=== PATIENT | female | born 1960 | race Caucasian/White ===

== ENCOUNTER 2020-09-24 15:47 | Emergency (ER) | payer OTHER, SELFPAY ==
--- NOTE | ~2020-09-24 | US_ITS ---
EXAMINATION: US VENOUS WITH DOPPLER LOWER EXTREMITY, LEFT CLINICAL INFORMATION: Left leg pain. Ankle sprain. Evaluate for a deep vein thrombosis. COMPARISON: None TECHNIQUE: Ultrasound of the deep veins is performed from the hip to the calf with compression sonography and color and pulse Doppler assessment. Spectral analysis with color-flow imaging is performed. FINDINGS: There is normal venous compression and respiratory variation and augmented flow. The visualized common femoral vein, superficial femoral vein, profunda femoral vein, popliteal vein, and the trifurcation region shows no evidence of deep venous thrombosis. There is no significant popliteal fossa cyst. If the patient's symptoms persist, followup ultrasound in 5 days 7 days might be of value to exclude proximal propagation from a non-visualized calf vein. US/US venous duplex LE IMPRESSION: No DVT demonstrated in the left lower extremity.
--- NOTE | ~2020-09-24 | XR_ITS ---
EXAMINATION: XR ANKLE, LEFT CLINICAL INFORMATION: Trauma with pain and swelling COMPARISON: None TECHNIQUE: AP, lateral, and mortise views of the left ankle. FINDINGS: Mild soft tissue swelling medially. Underlying bony structures however are unremarkable. No acute fracture or dislocation seen. Ankle mortise appears intact. No periosteal reaction. Incidental calcaneal heel spurs at the attachment point of the Achilles tendon and plantar aponeurosis. XR/XR ankle LT min 3V IMPRESSION: No acute fracture or dislocation. Incidental calcaneal heel spurs.
[2020-09-24 16:07] VITALS: BP 153/89; PULSE 83; RESP 16; TEMP 36.7; O2SAT 98; BMI 31.1
--- NOTE | 2020-09-24 16:55 | ED.LOWEXIN ---
HPI - Extremity Injury (Lower) General Chief Complaint: Extremity Injury, Lower Stated Complaint: fell 3 weeks AGO Time Seen by Provider: 09/24/20 16:54 Source: patient Mode of arrival: ambulatory Limitations: no limitations History of Present Illness HPI Narrative: 59-year-old female who walks into the emergency department with a complaint of left ankle swelling, symptoms started 2 weeks ago when she slipped on the snow, symptoms has been constant, able to bear weight but feeling tightness in the ankle while walking. Patient came in today for evaluation for persistence of the pain and swelling for 2 weeks. Related Data Allergies Allergy/AdvReac Type Severity Reaction Status Date / Time latex [LATEX] Allergy Unknown RASH Unverified 04/27/20 14:53 Review of Systems Review of Systems: All other systems are reviewed and are negative Constitutional: Reports as per HPI and Reports no additional constitutional complaints Eyes: Reports as per HPI and Reports no additional eye complaints Reports system reviewed and no additional complaints, except as documented Cardiovascular: Reports as per HPI and Reports no additional cardiovascular complaints Respiratory: Reports as per HPI and Reports no additional respiratory complaints Gastrointestinal: Reports as per HPI and Reports no additional gastrointestinal complaints Genitourinary: Reports no additional female genitourinary complaints Musculoskeletal: Reports no additional musculoskeletal complaints Skin/Breast: Reports system reviewed and no additional complaints, except as docu Psychiatric: Reports no additional psychiatric complaints Endocrine: Reports no additional endocrine complaints Hematologic/Lymphatic: Reports no additional hematologic/lymphatic complaints Allergic/Immunologic: Reports no additional allergic/immunologic complaints Reports system reviewed and no additional complaints, except as documented and Reports Abnormal speech present [facility] Past Medical History Medical History No known health problems Social History Social History Advance Directives: No Advance Directives Information Provided: Yes Physical Exam Vital Signs: Vital Signs: Last Vital Signs Temp 98.0 F 09/24/20 16:07 Pulse 83 09/24/20 16:07 Resp 16 09/24/20 16:07 BP 153/89 H 09/24/20 16:07 Pulse Ox 98 09/24/20 16:07 Body Mass Index 31.1 Vital signs have been reviewed as normal and appeared to be correct. Blood pressure in the high range. Heart rate normal. Respiration rate normal. Temperature normal. Oxygen saturation normal. Appearance: Alert. Oriented X3. No acute distress. Head: Normal external exam. Normocephalic. Atraumatic. No Hanson signs noted. No raccoon eyes noted Eyes: PERRLA. EOMI. Conjunctiva and sclera normal. Eyelids normal. ENT: EAC normal. TM's Normal. Pharynx normal. Uvula midline. Moist mucous membranes. No trismus noted. No drooling noted. No muffled voice noted. Neck: Normal inspection. Neck supple. FROM. No adenopathy. Thyroid Normal. No meningeal signs. No neck mass noted. CVS: Normal heart rate and rhythm. Heart sound normal. No murmurs noted. Pulses normal throughout. Respiratory: No respiratory distress. Painless inspiration. Breath sounds normal. No wheezes/rales/rhonchi noted. Chest nontender. No accessory muscle usage noted or decreased air movement noted. Abdomen: Soft and nontender. Bowel sounds normal in all 4 quadrants. No distention noted. No organomegaly noted. No visible injury noted. Back: No CVA tenderness. Full range of motion noted. Skin: Skin warm and dry. Normal skin color. Normal skin turgor. No rashes/lesions/lacerations noted. Extremities: Left ankle/left foot exam: Mild swelling on the medial malleolus, mild tenderness over the medial malleolus, full range of motion, no pain or swelling over the calf area, intact PT/DP pulsation with cap refill less than 2 seconds, sensation is intact in the left foot to right touch. Neuro: Oriented X 3. No motor deficit. No sensory deficit. Reflexes normal. Course Course Course Narrative: 59-year-old female who had left ankle injury 2 weeks ago came in with concern of persistence of swelling and tenderness in the left ankle. Unremarkable left ankle x-ray/negative ultrasound of left lower extremities for DVT. Recommended to the patient use Neo bandage at night, elevation, NSAIDs for discomfort and follow-up with PCP. MDM - Extremity Injury (Lower) Imaging Data Left ankle x-ray: Radiologist's impression: No acute fracture or dislocation. Incidental calcaneal heel spurs. Left lower extremities ultrasound: Radiologist's impression: No DVT. Discharge Plan Discharge Clinical Impression: Ankle sprain and strain Patient Disposition: Home, Self-Care Instructions: Ankle Sprain (ED) Referrals: Cassy Mtz MD [Primary Care Provider] - 2 days
== END 2020-09-24 18:51 | disposition home or self-care (01) ==
LOC: HO.ED 17:06
PROVIDERS: Emergency Provider Emergency Medicine; PCP Internal Medicine
DX: S93.402A Sprain of unspecified ligament of left ankle, initial encounter (principal); M25.572 Pain in left ankle and joints of left foot; X50.1XXA Overexertion from prolonged static or awkward postures, initial encounter; Y93.29 Activity, other involving ice and snow; Y92.9 Unspecified place or not applicable; Y99.9 Unspecified external cause status
CPT/HCPCS: 73610; 93971; 99284

== ENCOUNTER 2020-10-04 08:23 | Outpatient (REF) | payer OTHER, SELFPAY ==
--- NOTE | ~2020-10-04 | XR_ITS ---
EXAMINATION: XR hand wrist RT CLINICAL INFORMATION: History of fall COMPARISON: None. TECHNIQUE: PA, oblique, lateral, and navicular views of the right hand and wrist FINDINGS: No fracture. Normal alignment. Normal mineralization. No radiopaque foreign body. No soft tissue abnormality seen. XR/XR hand wrist RT IMPRESSION: No acute osseous abnormality.
[2020-10-04 09:45] LABS: Alanine Aminotransferase 64 U/L (0-31); Albumin Level 4.7 g/dL (3.5-5.0); Alkaline Phosphatase 125 U/L (39-117); Anion Gap 14 (12-20); Aspartate Amino Transferase 50 U/L (5-31); Bilirubin Total 0.5 mg/dL (0.0-1.0); Blood Urea Nitrogen 23 mg/dL (9-16); Carbon Dioxide 26 mmol/L (22-29); Chloride 108 mmol/L (96-108); Cholesterol 147 mg/dL; Estimated Glomerular Filt Rate > 60; Glucose Random 115 mg/dL (60-115); HDL Cholesterol 38 mg/dL; LDL Cholesterol Calculated 62 mg/dl; Potassium 4.1 mmol/L (3.3-5.1); Sodium 144 mmol/L (135-145); Total Protein 7.5 g/dL (6.5-8.0); Triglycerides 236 mg/dL
== END 2020-10-04 08:24 | disposition home or self-care (01) ==
LOC: HO.LAB 08:23
PROVIDERS: PCP Internal Medicine; Visit Provider Internal Medicine
DX: Z00.00 Encounter for general adult medical examination without abnormal findings (principal); E03.9 Hypothyroidism, unspecified; E78.2 Mixed hyperlipidemia; F33.42 Major depressive disorder, recurrent, in full remission; Z91.81 History of falling
CPT/HCPCS: 36415; 73110; 73130; 80053; 80061; 84443

== ENCOUNTER 2021-01-15 10:19 | Outpatient (REF) | payer OTHER, SELFPAY ==
--- NOTE | ~2021-01-15 | MM_ITS ---
EXAMINATION: MM SCREENING DIGITAL BREAST TOMOSYNTHESIS, BILATERAL CLINICAL INFORMATION: Screening. Asymptomatic. The lifetime risk of breast cancer based on the Tyrer-Cuzick Model is 11%. COMPARISON: Mammography: 10/06/2019, 03/30/2018 TECHNIQUE: Digital breast tomosynthesis is performed in both the craniocaudal and mediolateral oblique views along with computer-aided detection (CAD). Synthesized 2D images are generated from the tomosynthesis. Additional right MLO view is provided. FINDINGS: There are scattered areas of fibroglandular density (ACR BI-RADS breast composition Category b). There are no significant masses, abnormal calcifications, or other abnormalities. Parenchymal pattern is similar to prior studies. The axilla and skin contours are unremarkable. No significant changes. MM/MM tomosynthesis screening BI IMPRESSION: No mammographic evidence of malignancy. ASSESSMENT: BI-RADS 1: Negative RECOMMENDATION: Routine annual mammography screening. This patient's information was entered into a reminder system with a target due date for their next mammogram.
== END 2021-01-15 10:20 | disposition home or self-care (01) ==
LOC: HO.MAMMO 10:19
PROVIDERS: Visit Provider Internal Medicine
DX: Z12.31 Encounter for screening mammogram for malignant neoplasm of breast (principal)
CPT/HCPCS: 77063; 77067

== ENCOUNTER 2022-01-01 08:29 | Outpatient (REF) | payer OTHER, SELFPAY ==
[2022-01-01 09:04] LABS: MANUAL DIFF FLAG NO
[2022-01-01 09:47] LABS: Basophils Percent Auto 0.4 % (0-2); Eosinophils Absolute Auto 0.2 X10*3/uL (0.0-0.4); Eosinophils Percent Auto 1.9 % (0-4); Hematocrit 40.4 % (37.0-47.0); Hemoglobin 13.2 g/dl (12.0-16.0); Imm Gran Abs Auto 0.06 X10*3/uL (0.00-0.03); Imm Gran Pct Auto 0.7 % (0.0-0.4); Lymphocytes Percent Auto 24.5 % (20-40); Mean Corpuscular HGB Conc 32.7 g/dl (31.0-35.0); Mean Corpuscular Hemoglobin 29.9 pg (27.0-33.0); Mean Corpuscular Volume 91.6 fL (80.0-98.0); Monocytes Absolute Auto 0.6 X10*3/uL (0.1-1.2); Monocytes Percent Auto 6.6 % (2-11); Neutrophils Absolute Auto 5.5 x10*3/uL (2.0-8.3); Neutrophils Percent Auto 65.9 % (45-73); Platelet Count 226 X10*3/uL (160-400); Red Blood Count 4.41 X10*6/uL (4.20-5.50); Red Cell Distribution Width 14.4 % (11.0-16.0); White Blood Count 8.3 X10*3/uL (4.8-10.8)
[2022-01-01 10:37] LABS: Alanine Aminotransferase 88 U/L (0-31); Albumin Level 4.2 g/dL (3.5-5.0); Alkaline Phosphatase 127 U/L (39-117); Anion Gap 14 (12-20); Aspartate Amino Transferase 84 U/L (5-31); Bilirubin Total 0.4 mg/dL (0.0-1.0); Blood Urea Nitrogen 17 mg/dL (9-16); Calcium 8.7 mg/dL (8.4-10.2); Carbon Dioxide 21 mmol/L (22-29); Chloride 110 mmol/L (96-108); Cholesterol 129 mg/dL; Estimated Glomerular Filt Rate > 60; Glucose Random 112 mg/dL (60-115); HDL Cholesterol 36 mg/dL; LDL Cholesterol Calculated 66 mg/dl; Potassium 3.9 mmol/L (3.3-5.1); Sodium 141 mmol/L (135-145); Triglycerides 138 mg/dL
[2022-01-01 10:39] LABS: Thyroid Stimulating Hormone 0.99 uIU/mL (0.32-4.0)
== END 2022-01-01 08:30 | disposition home or self-care (01) ==
LOC: HO.LAB 08:29
PROVIDERS: PCP Internal Medicine; Visit Provider Internal Medicine
DX: Z00.00 Encounter for general adult medical examination without abnormal findings (principal); E03.8 Other specified hypothyroidism; E78.2 Mixed hyperlipidemia; F32.5 Major depressive disorder, single episode, in full remission
CPT/HCPCS: 36415; 80053; 80061; 84443; 85025

== ENCOUNTER 2022-07-17 09:29 | Outpatient (REF) | payer OTHER, SELFPAY ==
[2022-07-17 09:56] LABS: MANUAL DIFF FLAG NO
[2022-07-17 10:59] LABS: Basophils Absolute Auto 0.1 X10*3/uL (0.0-0.2); Basophils Percent Auto 0.6 % (0-2); Eosinophils Absolute Auto 0.2 X10*3/uL (0.0-0.4); Hematocrit 42.8 % (37.0-47.0); Hemoglobin 14.1 g/dl (12.0-16.0); Imm Gran Abs Auto 0.03 X10*3/uL (0.00-0.03); Imm Gran Pct Auto 0.4 % (0.0-0.4); Lymphocytes Absolute Auto 2.1 X10*3/uL (1.2-4.9); Lymphocytes Percent Auto 25.9 % (20-40); Mean Corpuscular HGB Conc 32.9 g/dl (31.0-35.0); Mean Corpuscular Hemoglobin 29.9 pg (27.0-33.0); Mean Corpuscular Volume 90.7 fL (80.0-98.0); Mean Platelet Volume 12.2 fL (9.4-12.3); Monocytes Absolute Auto 0.5 X10*3/uL (0.1-1.2); Monocytes Percent Auto 6.3 % (2-11); Neutrophils Absolute Auto 5.3 x10*3/uL (2.0-8.3); Neutrophils Percent Auto 64.8 % (45-73); Platelet Count 240 X10*3/uL (160-400); Red Blood Count 4.72 X10*6/uL (4.20-5.50); White Blood Count 8.1 X10*3/uL (4.8-10.8)
[2022-07-17 11:10] LABS: Estimated Average Glucose 117 mg/dL; Hemoglobin A1c % 5.7 %
[2022-07-17 11:36] LABS: Alanine Aminotransferase 74 U/L (0-31); Albumin Level 4.6 g/dL (3.5-5.0); Alkaline Phosphatase 128 U/L (39-117); Anion Gap 14 (12-20); Aspartate Amino Transferase 74 U/L (5-31); Bilirubin Total 0.5 mg/dL (0.0-1.0); Blood Urea Nitrogen 13 mg/dL (9-16); Calcium 9.1 mg/dL (8.4-10.2); Carbon Dioxide 23 mmol/L (22-29); Chloride 109 mmol/L (96-108); Cholesterol 143 mg/dL; Estimated Glomerular Filt Rate > 60; Glucose Random 109 mg/dL (60-115); HDL Cholesterol 37 mg/dL; LDL Cholesterol Calculated 72 mg/dl; Potassium 4.5 mmol/L (3.3-5.1); Sodium 141 mmol/L (135-145); Thyroid Stimulating Hormone 0.66 uIU/mL (0.32-4.0); Total Protein 7.2 g/dL (6.5-8.0); Triglycerides 173 mg/dL
== END 2022-07-17 09:30 | disposition home or self-care (01) ==
LOC: HO.LAB 09:29
PROVIDERS: PCP Internal Medicine; Visit Provider Internal Medicine
DX: E03.8 Other specified hypothyroidism (principal); E78.2 Mixed hyperlipidemia; F32.5 Major depressive disorder, single episode, in full remission; R74.01 Elevation of levels of liver transaminase levels
CPT/HCPCS: 36415; 80053; 80061; 83036; 84443; 85025

== ENCOUNTER 2022-10-30 10:17 | Outpatient (REF) | payer OTHER, SELFPAY ==
--- NOTE | ~2022-10-30 | MM_ITS ---
EXAMINATION: MM SCREENING DIGITAL BREAST TOMOSYNTHESIS, BILATERAL CLINICAL INFORMATION: Screening. Asymptomatic. The lifetime risk of breast cancer based on the Tyrer-Cuzick Model is 11%. COMPARISON: Mammography: 01/15/2021, 10/06/2019, 03/30/2018 TECHNIQUE: Digital breast tomosynthesis is performed in both the craniocaudal and mediolateral oblique views along with computer-aided detection (CAD). Synthesized 2D images are generated from the tomosynthesis. FINDINGS: There are scattered areas of fibroglandular density (ACR BI-RADS breast composition Category b). There are no significant masses, abnormal calcifications, or other abnormalities. No architectural abnormality or developing density or significant change from prior studies. There is a dermal lesion overlying the mid medial right breast. The axilla are unremarkable. MM/MM tomosynthesis screening BI IMPRESSION: No mammographic evidence of malignancy. ASSESSMENT: BI-RADS 2: Benign RECOMMENDATION: Routine annual mammography screening. This patient's information was entered into a reminder system with a target due date for their next mammogram.
== END 2022-10-30 10:18 | disposition home or self-care (01) ==
LOC: HO.MAMMO 10:17
PROVIDERS: PCP Internal Medicine; Visit Provider Internal Medicine
DX: Z12.31 Encounter for screening mammogram for malignant neoplasm of breast (principal)
CPT/HCPCS: 77063; 77067

== ENCOUNTER 2023-05-12 08:29 | Outpatient (REF) | payer OTHER, SELFPAY ==
[2023-05-12 10:19] LABS: Alanine Aminotransferase 67 U/L (0-31); Albumin Level 4.6 g/dL (3.5-5.0); Alkaline Phosphatase 140 U/L (39-117); Anion Gap 15 (12-20); Aspartate Amino Transferase 64 U/L (5-31); Bilirubin Total 0.6 mg/dL (0.0-1.0); Blood Urea Nitrogen 16 mg/dL (9-16); Calcium 9.2 mg/dL (8.4-10.2); Carbon Dioxide 23 mmol/L (22-29); Chloride 109 mmol/L (96-108); Estimated Glomerular Filt Rate > 60; Glucose Random 111 mg/dL (60-115); Potassium 3.7 mmol/L (3.3-5.1); Sodium 143 mmol/L (135-145); Total Protein 7.7 g/dL (6.5-8.0)
[2023-05-12 10:25] LABS: HBS Num1 0.12 mIU/mL (0-7.99); HBc Num1 0.14 S/CO (0.00-0.79); HBsAGNum1 0.29 S/CO (0.00-0.99); Hepatitis A Antibody IgM 0.15 Index (0-0.79); Hepatitis B Core Antibody Nonreactive (Nonreactive); Hepatitis B Surface Antigen Negative (Negative); ~HepC Num1 0.19 S/CO (0.00-0.79); ~Hepatitis A Antibody IgM Nonreactive (Nonreactive); ~Hepatitis B Surface Antibody NONREACTIVE (Nonreactive); ~Hepatitis C Antibody Nonreactive (Nonreactive)
[2023-05-12 10:28] LABS: Ferritin 205 ng/mL (10-250); Thyroid Stimulating Hormone 1.21 uIU/mL (0.32-4.0)
[2023-05-14 15:13] LABS: Anti Nuclear Antibody Screen NEGATIVE (NEGATIVE)
[2023-05-16 00:39] LABS: Smooth Muscle Antibody <20 U (<20)
== END 2023-05-12 08:30 | disposition home or self-care (01) ==
LOC: HO.LAB 08:29
PROVIDERS: PCP Internal Medicine; Visit Provider Internal Medicine
DX: E03.9 Hypothyroidism, unspecified (principal); E78.2 Mixed hyperlipidemia; I10 Essential (primary) hypertension; M54.50 Low back pain, unspecified; R74.01 Elevation of levels of liver transaminase levels
CPT/HCPCS: 36415; 80053; 82728; 84443; 86015; 86038; 86704; 86706; 86709; 86803; 87340

== ENCOUNTER 2023-09-10 08:01 | Outpatient (REF) | payer OTHER, SELFPAY ==
[2023-09-10 09:13] LABS: Alanine Aminotransferase 36 U/L (0-31); Albumin Level 4.3 g/dL (3.5-5.0); Alkaline Phosphatase 123 U/L (39-117); Anion Gap 12 (12-20); Aspartate Amino Transferase 34 U/L (5-31); Bilirubin Total 0.5 mg/dL (0.0-1.0); Blood Urea Nitrogen 17 mg/dL (9-16); Calcium 8.8 mg/dL (8.4-10.2); Carbon Dioxide 24 mmol/L (22-29); Chloride 108 mmol/L (96-108); Cholesterol 139 mg/dL (<200); Estimated Glomerular Filt Rate > 60; Glucose Random 102 mg/dL (60-115); HDL Cholesterol 33 mg/dL (>40); LDL Cholesterol Calculated 60 mg/dL (<100); Potassium 4.1 mmol/L (3.3-5.1); Sodium 140 mmol/L (135-145); Total Protein 7.7 g/dL (6.5-8.0); Triglycerides 234 mg/dL (<150)
[2023-09-10 09:28] LABS: Thyroid Stimulating Hormone 0.58 uIU/mL (0.32-4.0)
== END 2023-09-10 08:02 | disposition home or self-care (01) ==
LOC: HO.LAB 08:01
PROVIDERS: PCP Internal Medicine; Visit Provider Internal Medicine
DX: E03.9 Hypothyroidism, unspecified (principal); E78.2 Mixed hyperlipidemia; M67.813 Other specified disorders of tendon, right shoulder; I10 Essential (primary) hypertension; R74.01 Elevation of levels of liver transaminase levels
CPT/HCPCS: 36415; 80053; 80061; 84443

== ENCOUNTER 2023-10-01 14:27 | Emergency (ER) | payer OTHER, SELFPAY ==
--- NOTE | ~2023-10-01 | US_ITS ---
EXAMINATION: US VENOUS ULTRASOUND WITH DOPPLER LOWER EXTREMITY, BILATERAL CLINICAL INFORMATION: Bilateral lower extremity swelling COMPARISON: Ultrasound venous lower extremity left from 09/24/2020 TECHNIQUE: Ultrasound of the deep veins is performed from the hip to the calf with compression sonography and color and pulse Doppler assessment. Spectral analysis with color-flow imaging is performed. FINDINGS: RIGHT: There is normal venous compression and respiratory variation and augmented flow. The visualized common femoral vein, superficial femoral vein, profunda femoral vein, popliteal vein, and the trifurcation region shows no evidence of deep venous thrombosis. There is no significant popliteal fossa cyst. LEFT: There is normal venous compression and respiratory variation and augmented flow. The visualized common femoral vein, superficial femoral vein, profunda femoral vein, popliteal vein, and the trifurcation region shows no evidence of deep venous thrombosis. There is no significant popliteal fossa cyst. If the patient's symptoms persist, followup ultrasound in 5 days 7 days might be of value to exclude proximal propagation from a non-visualized calf vein. US/US venous duplex LE BI IMPRESSION: No DVT demonstrated in the bilateral lower extremity.
--- NOTE | 2023-10-01 14:36 | ED_ITS ---
HPI - Extremity Injury (Lower) General Chief Complaint: Extremity Problem Stated Complaint: r leg swelling Time Seen by Provider: 10/01/23 17:24 Source: patient Mode of arrival: ambulatory Limitations: no limitations History of Present Illness HPI Narrative: Patient is a 62-year-old female presenting to the emergency department with complaint of bilateral leg swelling which developed over the weekend. She denies any leg pain. She repeatedly states that ?someone told me it was fat. ? She denies any chest pain, palpitations, dyspnea. She denies history of heart failure, is not on a diuretic. She denies fevers. She denies any new weakness, numbness, tingling. complaint: other Onset (ago): day(s) Severity: mild Other symptoms: none Related Data Previous Rx's Medication Instructions Recorded cefuroxime axetil 500 mg tablet 500 mg PO BID #14 tabs 10/01/23 Allergies Allergy/AdvReac Type Severity Reaction Status Date / Time latex [LATEX] Allergy Unknown RASH Verified 10/01/23 14:37 Review of Systems 2 Review of Systems: As per HPI. Yes all other systems are reviewed and are negative Constitutional: Constitutional: Reports as per HPI COUNT INCLUDES THE [facility] Past Medical History Medical History No known health problems Social History Social History Alcohol intake: never Advance Directives: Yes Advance Directives Information Provided: No Advance Directives on File: No Physical Exam 2 Vital Signs: Vital Signs: Last Vital Signs Temp 98.4 F 10/01/23 17:34 Pulse 80 10/01/23 17:34 Resp 20 10/01/23 17:34 BP 173/86 H 10/01/23 17:34 Pulse Ox 94 10/01/23 17:34 O2 Del Method Room Air 10/01/23 17:34 BMI result Body Mass Index 31.0 Vital signs have been reviewed and appear to be correct. Blood pressure elevated. Heart rate normal. Respiratory rate normal. Temperature normal. Oxygen saturation normal. Const: General: cooperative, healthy appearing and no acute distress O rientation/consciousness: oriented to person, oriented to place, oriented to time and patient oriented x3 Limitations: no limitations HEENT: Head: Yes normocephalic and Yes atraumatic Ears: external ears normal General nose exam: Normal external nose present Face and sinus: Yes face symmetric Mouth: oropharynx normal and moist mucous membranes T hroat: Yes uvula midline Eyes: Pupils: Equal, round and reactive pupils present Neck: Neck: Yes normal visual inspection and Yes supple Resp: Effort & Inspection: normal respiratory effort and able to speak in complete sentences Auscultation: clear to auscultation bilaterally and no crackles Cardio: Rate: regular rate Rhythm: regular rhythm Heart sounds: S1 normal heart sound present and S2 normal heart sound present GI: Palpation (GI): Soft to palpation and nontender Auscultation: n ormoactive bowel sounds : General: Yes no CVA tenderness Back/Spine/Pelvis: Back: no CVA tenderness Skin: General skin exam: elasticity normal and turgor normal Neuro: General: oriented to person, oriented to place, oriented to time, patient oriented x3, moves all extremities, no focal motor deficits and CN's II- XI intact bilaterally Cranial nerves: Yes Equal, round and reactive pupils present Cognition (Neuro): normal cognition Extrem: Other: mild non-pitting bilateral lower extremity edema General: Yes full ROM, Yes no pedal edema and Yes no calf tenderness R ight lower extremity: foot Details: vascular exam Details: posterior tibial pulse present Left lower extremity: foot Details: vascular exam Details: dorsalis pedis pulse present and posterior tibial pulse present Psych: Mental Status: mental status grossly normal Affect: normal affect Thought process: Normal thought process present Course Course Course Narrative: RME: 62 year-old F w/no sig PMHx presenting to the ED c/o bilateral LE swelling, greater on the right > thigh/upper legs x5 days. denies taking diuretic, SOB, travel, hx clots Labs, US ordered Full HPI, ROS and PE to be performed by primary ED provider. Medical Decision Making Medical Decision Making MDM Narrative: Patient is a 62-year-old female presenting to the emergency department with complaint of bilateral leg swelling which developed over the weekend. On exam patient is awake, A+Ox3, VS WNL, afebrile, normal neurological exam without focal deficits, physical exam findings as above. Given reported symptoms and physical exam findings, initial differential includes dependent edema, DVT, acute heart failure, acute nephrotic syndrome. Labs notable for chronically elevated LFTs, no leukocytosis or anemia, no significant electrolyte abnormalities, normal BNP, normal albumin so unlikely nephrotic syndrome. No significant proteinuria noted on urinalysis, however 3+ leukocytes and nitrites noted, so will treat for UTI. Bilateral lower extremity ultrasounds notable for no evidence of DVTs. My interpretation is in agreement with the radiologist's interpretation. Discussed with patient that symptoms are unlikely due to fat, as this would not cause a sudden onset of swelling. Given that swelling is mild, feel patient is stable for discharge home to follow up with her PCP. Return precautions discussed at bedside. Instructed patient to follow-up with PCP regarding current symptoms as well as her elevated blood pressure in the emergency department today. Patient verbalized understanding of and agreement with plan. Differential Diagnosis Differential Diagnoses: The differential diagnosis associated with the presentation includes As per [facility]. Admission/Observation Consideration of admission/observation: Escalation of care including admission/observation considered Lab Data [facility] Lab Attestation statement: I reviewed the patient's lab results. As per MDM. 10/01/23 14:52 10/01/23 14:52 Labs: Lab Results 10/01/23 10/01/23 Range/Units 14:52 18:26 WBC 7.5 (4.8-10.8) X10*3/uL RBC 4.90 (4.20-5.50) X10*6/uL Hgb 14.5 (12.0-16.0) g/dl Hct 43.3 (37.0-47.0) % MCV 88.4 (80.0-98.0) fL MCH 29.6 (27.0-33.0) pg MCHC 33.5 (31.0-35.0) g/dl RDW 13.7 (11.0-16.0) % Plt Count 234 (160-400) X10*3/uL MPV 11.7 (9.4-12.3) fL Immature Gran % (Auto) 0.4 (0.0-0.4) % Neut % (Auto) 62.2 (45-73) % Lymph % (Auto) 28.4 (20-40) % Dewitt % (Auto) 6.8 (2-11) % Eos % (Auto) 1.7 (0-4) % Baso % (Auto) 0.5 (0-2) % Lymph # (Auto) 2.1 (1.2-4.9) X10*3/uL Dewitt # (Auto) 0.5 (0.1-1.2) X10*3/uL Eos # (Auto) 0.1 (0.0-0.4) X10*3/uL Baso # (Auto) 0.0 (0.0-0.2) X10*3/uL Abs Immat Gran (auto) 0.03 (0.00-0.03) X10*3/uL Absolute Neuts (auto) 4.7 (2.0-8.3) x10*3/uL Absolute Nucleated RBC 0.000 (0.0-0.012) X10*3/uL Nucleated RBC % (auto) 0.0 (0.0-0.2) /100WBC PT 12.1 (11.1-13.3) SEC INR 1.0 (0.9-1.1) Sodium 141 (135-145) mmol/L Potassium 3.7 (3.3-5.1) mmol/L Chloride 104 (96-108) mmol/L Carbon Dioxide 25 (22-29) mmol/L Anion Gap 16 (12-20) BUN 15 (9-16) mg/dL Creatinine 0.80 (0.5-1.4) mg/dL Estim Creat Clear Calc 70.0 Estimated GFR > 60 Random Glucose 105 (60-115) mg/dL Calcium 9.4 D (8.4-10.2) mg/dL Total Bilirubin 0.6 (0.0-1.0) mg/dL Direct Bilirubin 0.3 (0.0-0.5) mg/dL AST 46 H (5-31) U/L ALT 48 H (0-31) U/L Alkaline Phosphatase 124 H (39-117) U/L B-Natriuretic Peptide 25 (<100) pg/mL Total Protein 8.1 H (6.5-8.0) g/dL Albumin 4.7 (3.5-5.0) g/dL Urine Color Yellow Urine Appearance Cloudy Urine pH 5.5 (5.0-9.0) Ur Specific [place] 1.010 (1.005-1.025) Urine Protein Negative (Neg-Trace) mg/dL Urine Glucose (UA) Negative (Negative) mg/dL Urine Ketones Negative (Negative) mg/dL Urine Blood Trace H (Negative) Urine Nitrite Positive H (Negative) Ur Leukocyte Esterase Large (3+) H (Negative) Independent Interpretation I performed an independent interpretation of an: Ultrasound Interpretation: No evidence of DVT on bilateral lower extremity ultrasounds Radiology Impression Discussion of test interpretation with radiology: I have reviewed the radiologist's reading. Radiologist Impression: US/US venous duplex LE BI IMPRESSION: No DVT demonstrated in the bilateral lower extremity. External Record Review External record reviewed: Inpatient record, Office record and Outpatient record Prescription Management I considered prescription management with: Antibiotic Discharge Plan Discharge Clinical Impression: Dependent edema, Urinary tract infection Patient Disposition: Home, Self-Care Instructions: Urinary Tract Infection in Women (DC), Leg Edema (ED) Additional Instructions: You were evaluated in the emergency department today for bilateral lower leg swelling. Your evaluation including ultrasound and blood work did not reveal evidence of acute heart failure or blood clots in your legs. Your urine showed evidence of an infection, also known as a UTI. You are being prescribed a course of antibiotics to treat this infection, please complete the full course as prescribed. Please follow-up with your primary care provider for further evaluation of your symptoms. Your blood pressure was elevated in the emergency department today, please discuss this with your PCP. Return to the emergency department if you develop worsening swelling, chest pain, palpitations, shortness of breath or difficulty breathing, calf pain or swelling, or any other concerning symptoms. Prescriptions: New cefuroxime axetil 500 mg tablet 500 mg PO BID Qty: 14 0RF
[2023-10-01 14:37] VITALS: BP 146/88; PULSE 86; RESP 17; TEMP 36.6; O2SAT 96; BMI 31.0
[2023-10-01 14:56] LABS: MANUAL DIFF FLAG NO
[2023-10-01 14:58] LABS: Basophils Percent Auto 0.5 % (0-2); Eosinophils Absolute Auto 0.1 X10*3/uL (0.0-0.4); Eosinophils Percent Auto 1.7 % (0-4); Hematocrit 43.3 % (37.0-47.0); Hemoglobin 14.5 g/dl (12.0-16.0); Imm Gran Abs Auto 0.03 X10*3/uL (0.00-0.03); Imm Gran Pct Auto 0.4 % (0.0-0.4); Lymphocytes Absolute Auto 2.1 X10*3/uL (1.2-4.9); Lymphocytes Percent Auto 28.4 % (20-40); Mean Corpuscular HGB Conc 33.5 g/dl (31.0-35.0); Mean Corpuscular Hemoglobin 29.6 pg (27.0-33.0); Mean Corpuscular Volume 88.4 fL (80.0-98.0); Mean Platelet Volume 11.7 fL (9.4-12.3); Monocytes Absolute Auto 0.5 X10*3/uL (0.1-1.2); Monocytes Percent Auto 6.8 % (2-11); Neutrophils Absolute Auto 4.7 x10*3/uL (2.0-8.3); Neutrophils Percent Auto 62.2 % (45-73); Platelet Count 234 X10*3/uL (160-400); Red Cell Distribution Width 13.7 % (11.0-16.0); White Blood Count 7.5 X10*3/uL (4.8-10.8)
[2023-10-01 15:03] LABS: Prothrombin Time 12.1 SEC (11.1-13.3)
[2023-10-01 15:16] LABS: Alanine Aminotransferase 48 U/L (0-31); Albumin Level 4.7 g/dL (3.5-5.0); Alkaline Phosphatase 124 U/L (39-117); Anion Gap 16 (12-20); Aspartate Amino Transferase 46 U/L (5-31); Bilirubin Direct 0.3 mg/dL (0.0-0.5); Bilirubin Total 0.6 mg/dL (0.0-1.0); Blood Urea Nitrogen 15 mg/dL (9-16); Calcium 9.4 mg/dL (8.4-10.2); Carbon Dioxide 25 mmol/L (22-29); Chloride 104 mmol/L (96-108); Estimated Glomerular Filt Rate > 60; Glucose Random 105 mg/dL (60-115); Potassium 3.7 mmol/L (3.3-5.1); Sodium 141 mmol/L (135-145); Total Protein 8.1 g/dL (6.5-8.0)
[2023-10-01 15:30] LABS: B Type Natriuretic Peptide 25 pg/mL (<100)
[2023-10-01 17:34] VITALS: BP 173/86; PULSE 80; RESP 20; TEMP 36.9; O2SAT 94
[2023-10-01 18:42] LABS: Appearance Urine Cloudy; Color Urine Yellow; Glucose Urine UA Negative (Negative); Leukocyte Esterase Urine Large (3+) (Negative); Nitrite Urine Positive (Negative); PH 5.5 (5.0-9.0); UMIC TRIGGER UACC YES; Urine Blood Trace (Negative); Urine Ketones Negative (Negative); Urine Protein Negative (Neg-Trace)
[2023-10-01 18:44] LABS: Bacteria Urine 4+ (None Seen); Hyaline Casts Urine 0-2 /LPF (0-2); RBC Urine 0-2 /HPF (0-2); Squamous Epithelial Cell Urine 0-2 /HPF (0-2); UACC Culture Trigger YES; WBC Urine >50 /HPF (0-5)
== END 2023-10-01 18:59 | disposition home or self-care (01) ==
PROVIDERS: Physician Assistant; Registered Nurse Emergency; Emergency Provider Emergency Medicine Emergency Medical Services; PCP Internal Medicine
DX: R60.0 Localized edema (principal); N39.0 Urinary tract infection, site not specified
CPT/HCPCS: 36415; 80048; 80076; 81001; 83880; 85025; 85610; 87086; 87088; 87186; 93970; 99283; 99284

== ENCOUNTER 2023-11-27 09:58 | Outpatient (REF) | payer OTHER, SELFPAY | END 2023-11-27 09:59 | disposition home or self-care (01) | LOC: HO.MAMMO 09:58 | PROVIDERS: PCP Internal Medicine; Visit Provider Internal Medicine | DX: Z12.31 Encounter for screening mammogram for malignant neoplasm of breast (principal) | CPT/HCPCS: 77063; 77067 ==

== ENCOUNTER → 2023-11-27 10:45 | Outpatient (BNV) | payer OTHER, SELFPAY | PROVIDERS: PCP Internal Medicine; Visit Provider Radiology Diagnostic Radiology | DX: Z12.31 Encounter for screening mammogram for malignant neoplasm of breast (principal) | CPT/HCPCS: 77063; 77067 ==

== ENCOUNTER 2023-12-06 12:22 | Emergency (ER) | payer OTHER, SELFPAY ==
--- NOTE | ~2023-12-06 | XR_ITS ---
EXAMINATION: XR CHEST CLINICAL INFORMATION: Cough. Shortness of breath. COMPARISON: Most recent chest radiograph dated 01/11/2017. TECHNIQUE: 2 views of the chest were obtained. FINDINGS: The lungs are clear. The cardiomediastinal silhouette is normal in size. There is no pleural effusion or pneumothorax. No acute osseous abnormality. XR/XR chest 2V IMPRESSION: No acute cardiopulmonary findings.
[2023-12-06 12:23] VITALS: BP 138/86; PULSE 97; RESP 18; TEMP 36.6; O2SAT 99; BMI 32.1
--- NOTE | 2023-12-06 12:24 | ED.GENADULT ---
HPI - General Adult General Chief complaint: Upper Respiratory Symptoms Stated complaint: Congestion, cough Time Seen by Provider: 12/06/23 12:33 Source: patient Mode of arrival: ambulatory Limitations: no limitations History of Present Illness HPI narrative: patient is a 62-year-old female who presents to the emergency department for evaluation of 6 days of URI symptoms. Reports that she initially started with a cough, on the 1st day it was mildly productive with a small amount of yellow phlegm which has since subsided, intermittent nasal congestion and intermittent sore throat. She tried OTC cold medication without any improvement. Denies fevers, chills, headache, dizziness, neck pain, neck stiffness, chest pain, shortness of breath, difficulty breathing, nausea, vomiting, abdominal pain, numbness or tingling of the extremities, genitourinary symptoms. Related Data Previous Rx's ?Medication ?Instructions ?Recorded cefuroxime axetil 500 mg tablet 500 mg PO BID #14 tabs 10/01/23 amoxicillin 875 mg-potassium 1 tab PO BID #14 tabs 12/06/23 clavulanate 125 mg tablet Allergies Allergy/AdvReac Type Severity Reaction Status Date / Time latex [LATEX] Allergy Unknown RASH Verified 12/06/23 12:26 Review of Systems Review of Systems: Yes all other systems are reviewed and are negative PMFSH Past Medical History Attestation statement: The following information was validated with the patient. Source: old records reviewed Medical History No known health problems Social History Social History Alcohol intake: never Advance Directives: Yes Advance Directives Information Provided: No Advance Directives on File: No Do you have a plan to hurt others: No Plan Physical Exam ED Vital Signs: Vital Signs - 24 hr 12/06/23 12:23 Temperature 97.8 F Pulse Rate 97 Respiratory Rate 18 Blood Pressure 138/86 Pulse Oximetry 99 Oxygen Delivery Method Room Air BMI result Body Mass Index 32.1 Appearance: Alert.?Oriented to person, place and time. No acute distress.?Normal affect. Eyes: Pupils equal, round and reactive to light.? ENT: TM normal bilaterally. Pharynx normal.?? Neck: Normal inspection.? Neck supple.??No cervical adenopathy CVS: Heart sounds normal. Normal heart rate and rhythm.? Pulses normal.?? Respiratory: No respiratory distress.? Lung sounds clear to auscultation bilaterally?? Abdomen: Soft and non-tender. Normoactive bowel sounds. Skin: Skin warm and dry.? Normal skin color.? ? Extremities: No lower extremity edema.? Neuro: Moves all extremities spontaneously. Sensation intact bilaterally. No motor deficits. Ambulates with normal steady gait. Course Course Course Narrative: RME performed by Katharine Goodman PA-C. Patient is a 62 year old assigned female at presenting to the emergency department with a sore throat, cough, and congestion over the last 5 days. Detailed physical exam and review of systems are deferred to the supervisor adult education. Imaging and swabs ordered. Patient placed back in the waiting room pending room availability and results. Medical Decision Making Medical Decision Making [facility] Narrative: Patient is a 62-year-old female with past medical history of allergic rhinitis presenting for evaluation of upper respiratory symptoms. COVID-19 /influenza/RSV testing negative. strep a testing Negative. chest x-ray is without acute cardiopulmonary abnormality At this time history and physical exam not consistent with ACS/PE/pneumonia/ TRANSMISSION ASSEMBLER/RPA. Well-appearing, nontoxic, afebrile, no tachycardia or tachypnea/hypoxia. Speaking clear full sentences, ambulatory with steady gait. will treat with course of antibiotics for rhino sinusitis and Discussed conservative treatment including rest, hydration, Tylenol/ibuprofen as needed for fever and body aches, saline nasal spray, humidifier, kcyn-xws-rdwaifv cold medication. Advised to follow-up with primary care provider as needed, discussed reasons to return back to the emergency department. All questions were answered. Patient discharged home in stable condition. Differential Diagnosis Differential Diagnoses: The differential diagnosis associated with the presentation includes ( See narrative above) Admission/Observation Consideration of admission/observation: Escalation of care including admission/observation considered ( see narrative above) Lab Data [facility] Lab Attestation statement: I reviewed the patient's lab results. ( see narrative above) Labs: Lab Results 12/06/23 Range/Units 12:47 Influenza Type A (PCR) NEGATIVE (Negative) Influenza Type B (PCR) NEGATIVE (Negative) RSV RNA Qual (PCR) NEGATIVE (Negative) SARS-CoV-2 RNA (RT-PCR) NEGATIVE (Negative) S. pyogenes GrpA MICHELLE Negative (Negative) Independent Interpretation I performed an independent interpretation of an: Plain X-Ray ( no consolidation or infiltrates) Radiology Impression Discussion of test interpretation with radiology: I have reviewed the radiologist's reading. Radiologist Impression: XR/XR chest 2V IMPRESSION: No acute cardiopulmonary findings. Prescription Management I considered prescription management with: Antibiotic Discharge Plan Discharge Clinical Impression: Sinusitis Patient Disposition: Home, Self-Care Instructions: Rhinosinusitis (ED) Additional Instructions: Complete the entire course of antibiotics as prescribed. Be sure to rest, stay well hydrated drinking plenty of fluids, eat small frequent meals. Tylenol/ibuprofen can be used as needed for fever/pain. Tysh-cjr-jyummnc cold medications may be helpful as well for symptoms. Saline nasal spray, humidifier may be helpful for nasal congestion. You may return to the emergency department with any new or worsening symptoms or concerns. Follow-up with your primary care provider as needed. Prescriptions: New amoxicillin-pot clavulanate 875-125 mg tablet 1 tab PO BID Qty: 14 0RF No Action cefuroxime axetil 500 mg tablet 500 mg PO BID Qty: 14 0RF Referrals: Cassy Mtz MD [Primary Care Provider] - Print Language: Kinyarwanda
[2023-12-06 13:01] LABS: IDNOW Serial# 08D9AD1C; Strep A Nucleic Acid Negative (Negative)
[2023-12-06 13:30] LABS: Influenza A PCR NEGATIVE (Negative); Influenza B PCR NEGATIVE (Negative); Resp Syncy Virus RNA Qual PCR NEGATIVE (Negative); SARS COV2 PCR INHOUSE NEGATIVE (Negative)
[2023-12-06 14:43] VITALS: BP 138/86; PULSE 97; RESP 18; TEMP 36.6; O2SAT 99
== END 2023-12-06 14:44 | disposition home or self-care (01) ==
PROVIDERS: Physician Assistant Medical; Emergency Provider Student in an Organized Health Care Education/Training Program; PCP Internal Medicine
DX: J32.9 Chronic sinusitis, unspecified (principal); Z11.52 Encounter for screening for COVID-19
CPT/HCPCS: 0241U; 71046; 87651; 99282; 99283

== ENCOUNTER 2024-04-26 07:22 | Outpatient (REF) | payer OTHER, SELFPAY ==
[2024-04-26 08:24] LABS: Alanine Aminotransferase 50 U/L (0-31); Albumin Level 4.4 g/dL (3.5-5.0); Alkaline Phosphatase 121 U/L (39-117); Anion Gap 14 (12-20); Aspartate Amino Transferase 51 U/L (5-31); Bilirubin Total 0.5 mg/dL (0.0-1.0); Blood Urea Nitrogen 15 mg/dL (9-16); Calcium 9.3 mg/dL (8.4-10.2); Carbon Dioxide 24 mmol/L (22-29); Chloride 110 mmol/L (96-108); Estimated Glomerular Filt Rate > 60; Glucose Random 110 mg/dL (60-115); Potassium 3.7 mmol/L (3.3-5.1); Sodium 144 mmol/L (135-145); Total Protein 7.5 g/dL (6.5-8.0)
[2024-04-26 08:28] LABS: Thyroid Stimulating Hormone 1.38 uIU/mL (0.32-4.0)
== END 2024-04-26 07:23 | disposition home or self-care (01) ==
LOC: HO.LAB 07:22
PROVIDERS: PCP Internal Medicine; Visit Provider Internal Medicine
DX: Z00.00 Encounter for general adult medical examination without abnormal findings (principal); I10 Essential (primary) hypertension; E78.2 Mixed hyperlipidemia; E03.9 Hypothyroidism, unspecified
CPT/HCPCS: 36415; 80053; 84443

== ENCOUNTER 2024-10-18 08:28 | Outpatient (REF) | payer OTHER, SELFPAY ==
[2024-10-18 08:44] LABS: MANUAL DIFF FLAG NO
[2024-10-18 08:46] LABS: Basophils Absolute Auto 0.1 X10*3/uL (0.0-0.2); Basophils Percent Auto 0.6 % (0-2); Eosinophils Absolute Auto 0.2 X10*3/uL (0.0-0.4); Eosinophils Percent Auto 2.2 % (0-4); Hematocrit 42.6 % (37.0-47.0); Hemoglobin 14.1 g/dl (12.0-16.0); Imm Gran Abs Auto 0.02 X10*3/uL (0.00-0.03); Imm Gran Pct Auto 0.2 % (0.0-0.4); Lymphocytes Absolute Auto 2.2 X10*3/uL (1.2-4.9); Lymphocytes Percent Auto 27.1 % (20-40); Mean Corpuscular HGB Conc 33.1 g/dl (31.0-35.0); Mean Corpuscular Hemoglobin 29.7 pg (27.0-33.0); Mean Corpuscular Volume 89.9 fL (80.0-98.0); Monocytes Absolute Auto 0.5 X10*3/uL (0.1-1.2); Monocytes Percent Auto 6.6 % (2-11); Neutrophils Absolute Auto 5.1 x10*3/uL (2.0-8.3); Neutrophils Percent Auto 63.3 % (45-73); Platelet Count 215 X10*3/uL (160-400); Red Blood Count 4.74 X10*6/uL (4.20-5.50); Red Cell Distribution Width 13.5 % (11.0-16.0)
[2024-10-18 09:09] LABS: Alanine Aminotransferase 45 U/L (0-31); Albumin Level 4.3 g/dL (3.5-5.0); Alkaline Phosphatase 107 U/L (39-117); Anion Gap 11 (12-20); Aspartate Amino Transferase 42 U/L (5-31); Bilirubin Total 0.4 mg/dL (0.0-1.0); Blood Urea Nitrogen 18 mg/dL (9-16); Calcium 8.8 mg/dL (8.4-10.2); Carbon Dioxide 25 mmol/L (22-29); Chloride 112 mmol/L (96-108); Estimated Glomerular Filt Rate > 60; Glucose Random 109 mg/dL (60-115); Potassium 3.7 mmol/L (3.3-5.1); Sodium 144 mmol/L (135-145); Total Protein 7.9 g/dL (6.5-8.0)
[2024-10-18 09:24] LABS: Thyroid Stimulating Hormone 0.65 uIU/mL (0.32-4.0)
== END 2024-10-18 08:29 | disposition home or self-care (01) ==
LOC: HO.LAB 08:28
PROVIDERS: PCP Internal Medicine; Visit Provider Internal Medicine
DX: E03.9 Hypothyroidism, unspecified (principal); E78.00 Pure hypercholesterolemia, unspecified; I10 Essential (primary) hypertension; R74.01 Elevation of levels of liver transaminase levels
CPT/HCPCS: 36415; 80053; 84443; 85025

== ENCOUNTER 2024-12-01 14:24 | Emergency (ER) | payer OTHER, SELFPAY ==
--- NOTE | ~2024-12-01 | XR_ITS ---
EXAMINATION: XR HAND, LEFT CLINICAL INFORMATION: pain/swelling COMPARISON: None available. TECHNIQUE: PA, lateral, and oblique views of the left hand. FINDINGS: Carpal bones are intact with normal alignment. Metacarpal bones are intact. Phalanges are intact with normal alignment. No lytic or blastic lesions. No subcutaneous emphysema. No metallic or radiopaque foreign body. XR/XR hand LT min 3V IMPRESSION: No acute fracture or dislocation. Electronically signed by: Myron Croft MD 12/01/2024 03:17 PM EDT
--- NOTE | ~2024-12-01 | XR_ITS ---
EXAMINATION: XR WRIST, LEFT CLINICAL INFORMATION: pain/swelling COMPARISON: None available. TECHNIQUE: PA, lateral, and oblique views of the left wrist. FINDINGS: The carpal bones are intact with normal alignment. No lytic or blastic lesions. No metallic or radiopaque foreign body. No subcutaneous emphysema. Scaphoid projection demonstrated no acute cortical disruption or gross malalignment. Degenerative changes in the radial ulnar joint. XR/XR wrist LT min 3V IMPRESSION: No acute fracture or dislocation. Electronically signed by: Myron Croft MD 12/01/2024 03:18 PM EDT
--- NOTE | 2024-12-01 14:47 | ED_ITS ---
HPI - Extremity Injury (Upper) General Chief Complaint: Extremity Problem Stated Complaint: Tendinitis- L Hand Swelling, L Hand Pain Time Seen by Provider: 12/01/24 18:03 Source: patient, RN notes reviewed and old records reviewed Mode of arrival: ambulatory History of Present Illness ED Provider: Airam Jeffries PA-C HPI narrative: 63-year-old female with no significant past medical history presenting to the ED complaining of atraumatic left wrist pain and swelling x2 weeks. Admits to taking OTC medications without relief. Reports fall about 1 month ago, denies more recent injury/trauma. Denies numbness, tingling, weakness, decreased ROM, history of gout, fever Related Data Previous Rx's ?Medication ?Instructions ?Recorded cefuroxime axetil 500 mg tablet 500 mg PO BID #14 tabs 10/01/23 amoxicillin 875 mg-potassium 1 tab PO BID #14 tabs 12/06/23 clavulanate 125 mg tablet naproxen 500 mg tablet 500 mg PO BID PRN pain 10 days #20 12/01/24 tabs prednisone 20 mg tablet 40 mg (2 x 20 mg) PO DAILY 5 days 12/01/24 #10 tabs Allergies Allergy/AdvReac Type Severity Reaction Status Date / Time latex [LATEX] Allergy Unknown RASH Verified 12/01/24 14:48 Review of Systems Review of Systems: Yes all other systems are reviewed and are negative Constitutional: Constitutional: Reports as per [facility] Past Medical History Attestation statement: The following information was validated with the patient. Source: old records reviewed Medical History No known health problems Social History Social History Alcohol intake: never Physical Exam Vital Signs: Vital Signs: Last Vital Signs Temp 97.4 F 12/01/24 18:07 Pulse 88 12/01/24 18:07 Resp 18 12/01/24 18:07 BP 161/81 H 12/01/24 18:07 Pulse Ox 97 12/01/24 18:07 O2 Del Method Room Air 12/01/24 18:07 BMI result Body Mass Index 30.5 Const: General: cooperative, healthy appearing and no acute distress Orientation/consciousness: patient oriented x3 Limitations: no limitations HEENT: Head: Yes normal to inspection and Yes atraumatic Ears: hearing grossly normal bilaterally General nose exam: Normal external nose present Face and sinus: Yes normal facial exam Eyes: General: appearance normal, both eyes and all related structures EOM: EOMs intact bilaterally Neck: Neck: Yes normal visual inspection and Yes no meningeal signs Resp: Effort & Inspection: normal respiratory effort and no respiratory distress Cardio: Rate: regular rate Skin: Rashes: no rashes Wounds: no wounds Neuro: General: patient oriented x3, tone normal and no meningeal signs Cranial nerves: Yes CN's II-XII intact bilaterally Gait exam (Neuro): Normal gait present Extrem: Other: Left wrist with appreciable swelling. Diffusely tender to palpation. No erythema/warmth or crepitus. No snuffbox tenderness. ROM to wrist intact with discomfort. Pbbfce-hm-lytft opposition intact. Neurovascularly intact. No LUE edema Course Course Course Narrative: This is a Rapid Medical Exam performed in triage by Airam Jeffries PA-C. Full HPI, ROS and PE to be performed by primary ED provider. 63 yo F w/no sig PMHx presenting to the ED c/o atraumatic left hand/wrist pain and swelling x 2 weeks. Has been taking OTC medication without relief. Admits to fall 1 month ago. States was sent here by her PCP for further eval PE: Left wrist with appreciable swelling. No erythema or warmth. Diffusely tender to palpation. ROM intact with discomfort. Hplooc-ts-gkdwm opposition intact Plan: X-ray, pain control XR hand LT min 3V IMPRESSION: No acute fracture or dislocation. XR wrist LT min 3V IMPRESSION: No acute fracture or dislocation. > velcro thumb spica splint applied Results discussed with patient including worrisome signs and symptoms and strict return precautions, and when to return to the emergency department. They verbalized understanding and feel safe for discharge at this time. Medical Decision Making Medical Decision Making MDM Narrative: 63-year-old female with no significant past medical history presenting to the ED complaining of atraumatic left wrist pain and swelling x2 weeks. On exam vital signs stable, NAD, nontoxic appearing, physical exam as noted above. Concern for arthritis flare/arthralgia vs subacute fracture vs sprain. No evidence of septic joint/arthritis. Lower suspicion for gout or DVT Plan: X-ray, pain control Please refer to course for remaining clinical decision making, interpretation of labs/imaging results, and discussions with consultants and/or family members. Differential Diagnosis Differential Diagnoses: The differential diagnosis associated with the presentation includes As above Independent Interpretation I performed an independent interpretation of an: Plain X-Ray Radiology Impression Discussion of test interpretation with radiology: I have reviewed the ra diologist's reading. External Record Review External record reviewed: Inpatient record, Office record, Outpatient record, Prior outpatient labs, Prior outpatient radiology, Primary care record and Outside ED record Tests considered The following testing was considered but not selected: As above Prescription Management I considered prescription management with: Pain Medication Chronic Conditions Patient?s care impacted by: Other Social Determinants Patient?s care significantly limited by Social Determinants of Health including: Other Social Determinant of Health Discharge Plan Discharge Clinical Impression: Acute wrist pain, Arthralgia Patient Disposition: Home, Self-Care Instructions: Arthralgia (ED) Additional Instructions: Your x-rays are unremarkable Ice and elevate Wear splint for comfort and compression/stability Naproxen as an anti-inflammatory/pain medication, take with food In addition prednisone as a steroid, this will help with inflammation If her symptoms persist or worsen, pain is unbearable, joint becomes red, warm, you have fever return to the ED Prescriptions: New prednisone 20 mg tablet 40 mg PO DAILY 5 Days Qty: 10 0RF naproxen 500 mg tablet 500 mg PO BID PRN (Reason: pain) 10 Days Qty: 20 0RF No Action cefuroxime axetil 500 mg tablet 500 mg PO BID Qty: 14 0RF amoxicillin-pot clavulanate 875-125 mg tablet 1 tab PO BID Qty: 14 0RF Referrals: [facility] [Provider Group] - 1 week Cassy Mtz MD [Primary Care Provider] - 5 days Print Language: Citizen Of [place]
[2024-12-01 14:48] VITALS: BP 140/91; PULSE 93; RESP 16; TEMP 36.4; O2SAT 93; BMI 30.5
[2024-12-01 18:07] VITALS: BP 161/81; PULSE 88; RESP 18; TEMP 36.3; O2SAT 97
[2024-12-01] MEDS: Ketorolac Tromethamine 30 MG/ML VIAL IM (18:13)
[2024-12-01 18:23] VITALS: BP 161/81; PULSE 88; RESP 18; TEMP 36.3; O2SAT 97
--- OUTSIDE RECORDS SUMMARY | 2024-12-01 18:42 | XMS_ITS ---
Author Organization [facility] Address [address] [place] [address] Care Team Providers Care Beam Sealer Name Role Phone Cassy Mtz Primary Care Provider Unavailab Taz Mendoza [phone] REASON FOR VISIT Patient presents today for a colon screening Encounters Encounter Location Date Provider Diagnosis [facility] [address] [place] [address] 09/23/2024 Taz Peña Plan Of Treatment Next Appt Details Provider Name:Taz Peña , 01/14/2025 02:00:00 PM, [address], [address], [place], [address], Progress Notes * LEONID HUNTEROB:1960 ( 63 yo F)Acc No.[id number]:09/23/2024 Progress Notes Patient:?VENKAT HUNTER Provider:?Taz Peña MD :1960???Age:63 Y???Sex:Female D ate:09/23/2024 Address:[address] [place] [address] [address] Wilasya guzman [id number] Pcp:Cassy Mtz Subjective: * Chief Complaints: * ???1. Patient presents today for a colon screening. * Medical History:? Objective: * Vitals:? Assessment: Plan: * Treatment: * * The named appointment provid er may or may not be the originator of this progress note, and it is not deemed complete until electronically signed by the appointment provider. Sign off status: Pending * Provider:?Taz Peña MD Date:? 025 Generated for Glenroyi aleisha/Bert/eTransmitting on:?12/01/2024 06:42 PM EDT
--- OUTSIDE RECORDS SUMMARY | 2024-12-01 18:43 | XMS_ITS ---
Author Organization [facility] Address [address] [place] [address] Care Team Providers Care Vector Control Assistant Name Role Phone Cassy Mtz Primary Care Provider Unavailab Taz Mendoza [phone] REASON FOR VISIT Patient presents today for a screening colonoscopy Encounters Encounter Location Date Provider Diagnosis [facility] [address] [place] [address] 08/31/2024 Taz Peña Plan Of Treatment Next Appt Details Provider Name:Taz Peña , 01/14/2025 02:00:00 PM, [address], [address], [place], [address], Progress Notes * LEONID HUNTEROB:1960 ( 63 yo F)Acc No.[id number]:08/31/2024 Progress Notes Patient:?VENKAT HUNTER Provider:?Taz Peña MD :1960???Age:63 Y???Sex:Female D ate:08/31/2024 Address:[address] [place] [address] [address] Wilasya guzman [id number] Pcp:Cassy Mtz Subjective: * Chief Complaints: * ???1. Patient presents today for a screening colonoscopy. * Medical History:? Objective: * Vitals:? Assessment: [...]
--- OUTSIDE RECORDS SUMMARY | 2024-12-01 18:43 | XMS_ITS | Patient Health Record ---
Author Organization [facility] Address [address] [place] [address] Care Team Providers Care Crosscutter Name Role Phone Cassy Mtz Primary Care Provider Unavailab Taz Mendoza Unavailable [phone] Reason For Referral No Information Medications Medication SIG (Take, Route, Fr equency, Duration) Notes Start Date End Date Status Simvastatin 40 MG 1 tablet in the even ing Orally Once a day Active Levoxyl 125 MCG 1 tablet on an empty stomach in the morning Orally Once a day Ac tive Omeprazole 20 MG 1 capsule Orally Once a day Active Sertraline HCl 50 MG 1 tablet Orally Once a day Active Centrum - as directed Orally once a day Active Immunizations Vaccine Route Administration Date Status Comme nts Influenza Unknown 04/22/2018 Administered Social History Alcohol Screen Question Answer Notes Did you have a drink contain ing alcohol in the past year? Yes How often did you have a dri nk containing alcohol in the past year? 2 to 4 times a month (2 points) How many drinks did you have on a typical day when you were drinking in the past year? 1 or 2 drinks (0 point) How often did you have 6 or more drinks on one occasion in the past year? Never (0 point) Points 2 Interpretation Negative Section Notes: Nonsmoker; no sig. alcohol Nonsmoker; no sig. alcohol 2-3 glassess of milk daily, eats 1 yogurt daily Nonsmoker; no sig. alcohol 1-2 glasses of milk daily, eats 1 yogurt daily Problems Problem Type SNOMED Code ICD Code Onset Dates Problem Status W/U Status Risk Notes Problem 596621150 Abdominal bloati ng (R14.0) Active confirmed Problem 678963477 Irritable bowel syndrome with diarrhea (K58.0) Active confirmed Problem 996870272 Gastroesophageal reflux disease without esophagitis (K21.9) Active confirmed Problem 50483030 Rectal bleed (K62.5) Active confirmed Encounters Encounter Location Date Provider Diagnosis [facility] [address] [place] [address] 04/13/2024 Taz Peña [facility] [address] [place] [address] 08/31/2024 Taz Peña [facility] [address] [place] [address] 09/23/2024 Taz Peña Plan Of Treatment Pending Test Test Name Order Date GI BIOPSY 06/18/2019 Future Test Test Name Order Date UPPER GI ENDOSCOPY 01/15/2013 COLONOSCOPY 01/15/2013 COLONOSCOPY 03/30/2019 Next Appt Details Provider Name:Taz Peña , 01/14/2025 02:00:00 PM, [address], [address], [place], [address], Insurance Providers Payer Name Payer Address Payer Phone Subscriber Number Group Number Insured Name Patient Relationship to Insured Coverage Start Date Coverage End Date [facility] [address] [place] [address] [id number] VENKAT HUNTER Self - patient is the insured Medical (General) History Medical History History ICD Code Denies CT,DM,CVA,Lung disease,renal dise ase GERD--EGD in 04/2013--small HH, gastric p olyps, no esophagitis, no Denson's Hyperlipidemia Depression Hypothyroidism Colonoscopy in 04/2013--hyper plastic polyp, diverticulosis, internal hemorrhoids IBS--neg labs for celiac disease in 2017 Surgical History Surgery Date(Month/Year) tonsillectomy appendectomy
--- OUTSIDE RECORDS SUMMARY | 2024-12-01 18:43 | XMS_ITS ---
Author Organization [facility] Address [address] [place] [address] Care Team Providers Care Director Prospect Name Role Phone Cassy Mtz Primary Care Provider UnavailTaz Ambriz [phone] Encounters Encounter Location Date Provider Diagnosis [facility] [address] [place] [address] 09/23/2024 Taz Peña Plan Of Treatment Next Appt Details Provider Name:Taz Peña , 01/14/2025 02:00:00 PM, [address], [address], [place], [address], Progress Notes * LEONID HUNTEROB:1960 ( 63 yo F)Acc No.[id number]:09/23/2024 Patient:?VENKAT HUNTER :1960???Age:63 Y???Sex:Female Address:[address] , [place], [address] * true * Date:? Generated for Glenroyi aleisha/Bert/eTransmitting on:?12/01/2024 06:42 PM EDT
== END 2024-12-01 18:23 | disposition home or self-care (01) ==
PROVIDERS: Emergency Provider Emergency Medicine; PCP Internal Medicine
DX: M25.532 Pain in left wrist (principal)
CPT/HCPCS: 73110; 73130; 96372; 99283; 99284; J1885

== ENCOUNTER → 2024-12-01 14:52 | Outpatient (BNV) | payer OTHER, SELFPAY | PROVIDERS: PCP Internal Medicine; Visit Provider Radiology Diagnostic Radiology | DX: M25.532 Pain in left wrist (principal); M79.642 Pain in left hand; R22.32 Localized swelling, mass and lump, left upper limb | CPT/HCPCS: 73110; 73130 ==

== ENCOUNTER 2024-12-21 10:48 | Outpatient (REF) | payer OTHER, SELFPAY ==
--- OUTSIDE RECORDS SUMMARY | 2024-12-21 12:13 | XMS_ITS ---
Author Organization [facility] Address [address] [place] [address] Care Team Providers Care Meteorologist Liaison Name Role Phone Cassy Mtz Primary Care Provider Unavailab Taz Mendoza [phone] REASON FOR VISIT Patient presents today for a screening colonoscopy Encounters Encounter Location Date Provider Diagnosis [facility] [address] [place] [address] 08/31/2024 Taz Peña Plan Of Treatment Next Appt Details Provider Name:Taz Peña , 01/14/2025 02:00:00 PM, [address], [address], [place], [address], Progress Notes * LEONID HUNTEROB:1960 ( 63 yo F)Acc No.[id number]:08/31/2024 Progress Notes Patient:?VENKAT HUNTER Provider:?Taz Peña MD :1960???Age:63 Y???Sex:Female D ate:08/31/2024 Address:[address] [place] [address] [id number] Pcp:Cassy Mtz Subjective: * Chief Complaints: * [...] MD Date:? 025 Generated for Glenroyi aleisha/Bert/eTransmitting on:?12/21/2024 12:13 PM EDT
--- OUTSIDE RECORDS SUMMARY | 2024-12-21 12:13 | XMS_ITS | Patient Health Record ---
Author Organization [facility] Address [address] [place] [address] Care Team Providers Care Printing Plate Maker Name Role Phone Cassy Mtz Primary Care Provider Unavailab Taz Mendoza Unavailable [phone] Reason For Referral No Information Medications Medication [...] Problem Status W/U Status Risk Notes Problem [id number] Abdominal bloati ng (R14.0) Active confirmed Problem 654846276 Irritable bowel syndrome with diarrhea (K58.0) Active confirmed Problem 556867850 Gastroesophageal reflux disease without esophagitis (K21.9) Active confirmed Problem 41245216 Rectal bleed (K62.5) Active confirmed Encounters Encounter Location Date Provider Diagnosis [facility] [address] [place] [address] 04/13/2024 Taz Peña [facility] [address] [place] [address] 08/31/2024 Taz Peña [facility] [address] [place] [address] 09/23/2024 Taz Peña Plan Of Treatment Pending Test Test Name Order Date GI BIOPSY 06/18/2019 Future Test Test Name Order Date UPPER GI ENDOSCOPY 01/15/2013 COLONOSCOPY 01/15/2013 COLONOSCOPY 03/30/2019 Next Appt Details Provider Name:Taz Peña , 01/14/2025 02:00:00 PM, [address], [address], [place], [address], Insurance Providers Payer Name Payer Address Payer Phone Subscriber Number Group Number Insured Name Patient Relationship to Insured Coverage Start Date Coverage End Date [facility] [address] [place] [address] [id number] VENKAT HUNTER Self - patient is the insured Medical (General) History Medical History History ICD Code Denies [place],DM,CVA,Lung disease,renal dise ase GERD--EGD in 04/2013--small HH, gastric p olyps, no esophagitis, no Denson's Hyperlipidemia Depression Hypothyroidism Colonoscopy in 04/2013--hyper plastic polyp, diverticulosis, internal hemorrhoids IBS--neg labs for celiac disease in 2017 Surgical History Surgery Date(Month/Year) tonsillectomy appendectomy
--- OUTSIDE RECORDS SUMMARY | 2024-12-21 12:13 | XMS_ITS ---
Author Organization [facility] Address [address] [place] [address] Care Team Providers Care Civil Laboratory Technician Name Role Phone Cassy Mtz Primary Care Provider UnavailTaz Ambriz [phone] Encounters Encounter Location Date Provider Diagnosis [facility] [address] [place] [address] 09/23/2024 Taz Peña Plan Of Treatment Next Appt Details Provider Name:Taz Peña , 01/14/2025 02:00:00 PM, [address], [address], [place], [address], Progress Notes * LEONID HUNTEROB:1960 ( 63 yo F)Acc No.[id number]:09/23/2024 Patient:?VENKAT HUNTER :1960???Age:63 Y???Sex:Female Address:[address] , [place], [address] * true * Date:? Generated for Printi aleisha/Bert/eTransmitting on:?12/21/2024 12:13 PM EDT
--- OUTSIDE RECORDS SUMMARY | 2024-12-21 12:13 | XMS_ITS ---
Author Organization [facility] Address [address] [place] [address] Care Team Providers Care Russian Language Instructor Name Role Phone Cassy Mtz Primary Care Provider Unavailab Taz Mendoza [phone] REASON FOR VISIT Patient presents today for a colon screening Encounters Encounter Location Date Provider Diagnosis [facility] [address] [place] [address] 09/23/2024 Taz Peña Plan Of Treatment Next Appt Details Provider Name:Taz Peña , 01/14/2025 02:00:00 PM, [address], [address], [place], [address], Progress Notes * LEONID HUNTEROB:1960 ( 63 yo F)Acc No.[id number]:09/23/2024 Progress Notes Patient:?VENKAT HUNTER Provider:?Taz Peña MD :1960???Age:63 Y???Sex:Female D ate:09/23/2024 Address:[address] [place] [address] [address] [id number] Pcp:Cassy Mtz Subjective: * Chief Complaints: * [...]
== END 2024-12-21 10:49 | disposition home or self-care (01) ==
LOC: HO.MAMMO 10:48
PROVIDERS: PCP Internal Medicine; Visit Provider Internal Medicine
DX: Z12.31 Encounter for screening mammogram for malignant neoplasm of breast (principal)
CPT/HCPCS: 77063; 77067

== ENCOUNTER → 2024-12-21 11:45 | Outpatient (BNV) | payer OTHER, SELFPAY | PROVIDERS: PCP Internal Medicine; Visit Provider Internal Medicine | DX: Z12.31 Encounter for screening mammogram for malignant neoplasm of breast (principal) | CPT/HCPCS: 77063; 77067 ==

== ENCOUNTER 2025-04-18 08:33 | Outpatient (REF) | payer OTHER, SELFPAY ==
--- OUTSIDE RECORDS SUMMARY | 2024-04-13 06:30 | XMS_ITS ---
Author Organization [facility] Address [address] [place] [address] Care Team Providers Care Fish Header Name Role Phone Cassy Mtz Primary Care Provider Unavailab Taz Mendoza Unavailable [phone] REASON FOR VISIT Patient presents today for a colon screening Encounters Encounter Location Date Provider Diagnosis [facility] [address] [place] [address] 04/13/2024 Taz Peña Plan Of Treatment No Information Progress Notes * LEONID HUNTEROB:1960 ( 64 yo F)Acc No.[id number]:04/13/2024 Progress Notes Patient: VENKAT ANTHONY Provider: Tomasa Peña MD :1960 A ge:63 Y S ex:Female Date:04/13/2024 Address:[address] [place] [address] [address] Yasmin guzman [id number] Pcp:Cassy Mtz Subjective: * Chief Complaints: * [...] Pending * Provider: Tomasa Peña MD Date: 04/13/2024 Generated for Familia moraes/Bert/Cecilyitting on: 04/18/2025 09:33 AM EDT
--- OUTSIDE RECORDS SUMMARY | 2024-08-31 06:30 | XMS_ITS ---
Author Organization [facility] Address [address] [place] [address] Care Team Providers Care Pot Reliner Name Role Phone Cassy Mtz Primary Care Provider Unavailab Taz Mendoza Unavailable [phone] REASON FOR VISIT Patient presents today for a screening colonoscopy Encounters Encounter Location Date Provider Diagnosis [facility] [address] [place] [address] 08/31/2024 Taz Peña Plan Of Treatment No Information Progress Notes * LEONID HUNTEROB:1960 ( 64 yo F)Acc No.[id number]:08/31/2024 Progress Notes Patient: VENKAT ANTHONY Provider: Tomasa Peña MD :1960 A ge:63 Y S ex:Female Date:08/31/2024 Address:[address] [place] [address] [address] Yasmin guzman [id number] Pcp:Cassy Mtz Subjective: * Chief Complaints: * 1 . Patient presents today for a screening colonoscopy. * Medical History: Objective: * Vitals: Assessment: Plan: * Treatment: * * The named appointment provid er may or may not be the originator of this progress note, and it is not deemed complete until electronically signed by the appointment provider. Sign off status: Pending * Provider: Tomasa Peña MD Date: 0 08/31/2024 Generated for Familia moraes/Bert/Cecilyitting on: 0 04/18/2025 09:33 AM EDT
--- OUTSIDE RECORDS SUMMARY | 2024-09-23 06:00 | XMS_ITS ---
Author Organization [facility] Address [address] [place] [address] Care Team Providers Care Fire Chief Name Role Phone Cassy Mtz Primary Care Provider Unavailab Taz Mendoza Unavailable [phone] REASON FOR VISIT Patient presents today for a colon screening Encounters Encounter Location Date Provider Diagnosis [facility] [address] [place] [address] 09/23/2024 Taz Peña Plan Of Treatment No Information Progress Notes * LEONID HUNTEROB:1960 ( 64 yo F)Acc No.[id number]:09/23/2024 Progress Notes Patient: VENKAT ANTHONY Provider: Tomasa Peña MD :1960 A ge:63 Y S ex:Female Date:09/23/2024 Address:[address] [place] [address] [address] Yasmin [id number] Pcp:Cassy Mtz Subjective: * Chief Complaints: * [...] * Provider: Tomasa Peña MD Date: 0 09/23/2024 Generated for Familia moraes/Bert/Cecilyitting on: 0 04/18/2025 09:33 AM EDT
--- OUTSIDE RECORDS SUMMARY | 2025-01-14 10:00 | XMS_ITS ---
Author Organization [facility] Address [address] [place] [address] Care Team Providers Care Copying Machine Mechanic Name Role Phone Cassy Mtz Primary Care Provider Unavailab Taz Mendoza Unavailable [phone] REASON FOR VISIT Patient presents today for discuss colonoscopy Encounters Encounter Location Date Provider Diagnosis [facility] [address] [place] [address] 01/14/2025 Taz Peña Plan Of Treatment No Information Progress Notes * LEONID HUNTEROB:1960 ( 64 yo F)Acc No.[id number]:01/14/2025 Progress Notes Patient: VENKAT ANTHONY Provider: Tomasa Peña MD :1960 A ge:64 Y S ex:Female Date:01/14/2025 Address:[address] [place] [address] [address] [id number] Pcp:Cassy Mtz Subjective: * Chief Complaints: * 1 . Patient presents today for discuss colonoscopy. * Medical History: Objective: * Vitals: Assessment: Plan: * Treatment: * * The named appointment provid er may or may not be the originator of this progress note, and it is not deemed complete until electronically signed by the appointment provider. Sign off status: Pending * Provider: Tomasa Peña MD Date: 01/14/2025 Generated for Familia moraes/Bert/Cecilyitting on: 04/18/2025 09:33 AM EDT
--- OUTSIDE RECORDS SUMMARY | 2025-04-15 10:20 | XMS_ITS ---
Author Organization [facility] Address [address] [place] [address] Care Team Providers Care Inpatient Services Director Name Role Phone Cassy Mtz Primary Care Provider Unavailab Taz Mendoza Unavailable [phone] Allergies No Known Allergies REASON FOR VISIT Patient presents today for a colonoscopy Medications Medication SIG (Take, Route, Fr equency, Duration) Notes Start Date End Date Status Simvastatin 40 MG 1 tablet in the even ing Orally Once a day Active Levoxyl 125 MCG 1 tablet on an empty stomach in the morning Orally Once a day Ac tive Sertraline HCl 50 MG 1 tablet Orally Once a day Active Centrum - as directed Orally once a day Active Omeprazole 20 MG 1 capsule Orally Once a day Active Loratadine 10 MG 1 tablet Orally Once a day Active Social History AUDIT-C (Standard) Question Answer Notes Did you have a drink containing alcohol in the p ast year? No Points 0 Interpretation Negative Section Notes: Nonsmoker; no sig. alcohol 1-2 glasses of milk daily, eats 1 yogurt daily Problems Problem Type SNOMED Code ICD Code Onset Dates Problem Status W/U Status Risk Notes Problem Elevated liver enzymes level (086990013) Elevated liver function tests (R79.89) Active confirmed Problem Fatty liver (773316891) Fatty liver (K76.0) Active confirmed Problem Colon cancer screening (790892563) Colon cancer screening (Z12.11) Active confirmed Vital Signs Temperature 96.9 degrees Fahrenheit 04/15/20 25 Blood pressure systolic 001 mm Hg 04/15/20 25 Blood pressure diastolic 01 mm Hg 025 Height 61.5 in 04/15/2025 Weight 167.8 lbs 04/15/2025 BMI 31.19 kg/m2 04/15/2025 Encounters Encounter Location Date Provider Diagnosis [facility] [address] [place] [address] 04/15/2025 Taz Peña Irritable bowel synd joseluis with diarrhea K58.0 ; Gastroesophageal reflux disease without esophagitis K21.9 ; Elevated liver function tests R79.89 ; Fatty liver K76.0 and Colon cancer screening Z12.11 Assessments Encounter Date Diagnosis (ICD Code) Assessment Notes Treatment Notes Treatment Clinical Notes Section Notes 04/15/2025 Irritable bowel syndrome with diarrhea (ICD-10 - K58.0) Switch to a Lactose-free milk and Ice Cream like Marne Milk, Soy MIlk, etc to see if that helps your stomach symptoms like the diarrhea, gas, bloating, etc Overall, Sherry appears well. We did review her negative colonoscopy from 2018 and I did advise her of the need for a follow-up screening colonoscopy in 2028 given no sign of adenomas in 2019 or 2012, and no family history of colorectal cancer. In regard to her ongoing GI symptoms this sounds quite consistent with irritable bowel syndrome as well as probably a component of some lactose intolerance. I did review with her that she should try to avoid dairy products with lactose and use things such as almond milk and lactose-free ice cream. Given her negative colonoscopy in 2018, including biopsies from the colon, I do not think a repeat colonoscopy is presently required. Her reflux also seems to be stable on the omeprazole and I do not think any repeat upper endoscopy is required. Her upper endoscopy in 2012 was not revealing in regard to any significant esophagitis or Denson's esophagus. In regard to the elevated LFTs I do feel this is in relation to fatty liver and I did review this with her. We did review the obvious need to lose weight, practice dietary discretion, and to maximally control her hyperlipidemia . At this point given the minimal elevations I do not think she requires a liver biopsy. However I shall have her undergo a liver ultrasound, along with the liver workup, including iron studies and autoimmune studies. At this point I do not see any stigmata of chronic liver disease on her exam and she does not have any symptoms to suggest that at this time. I will plan to see her again in the spring. I did advise her to contact me in the interim if she has any problems or questions I can be of assistance with. Sherry was comfortable with this plan. Thank you again for allowing me to participate in Sherry's care. I shall continue to keep you advised of her progress.. 04/15/2025 Gastroesophageal reflux disease without esophagitis (ICD-10 - K21.9) Overall, Sherry appears well. We did review her negative colonoscopy from 2019 and I did advise her of the need for a follow-up screening colonoscopy in 2028 given no sign of adenomas in 2019 or 2012, and no family history of colorectal cancer. In regard to her ongoing GI symptoms this sounds quite consistent with irritable bowel syndrome as well as probably a component of some lactose intolerance. I did review with her that she should try to avoid dairy products with lactose and use things such as almond milk and lactose-free ice cream. Given her negative colonoscopy in 2018, including biopsies from the colon, I do not think a repeat colonoscopy is presently required. Her reflux also seems to be stable on the omeprazole and I do not think any repeat upper endoscopy is required. Her upper endoscopy in 2012 was not revealing in regard to any significant esophagitis or Denson's esophagus. In regard to the elevated LFTs I do feel this is in relation to fatty liver and I did review this with her. We did review the obvious need to lose weight, practice dietary discretion, and to maximally control her hyperlipidemia . At this point given the minimal elevations I do not think she requires a liver biopsy. However I shall have her undergo a liver ultrasound, along with the liver workup, including iron studies and autoimmune studies. At this point I do not see any stigmata of chronic liver disease on her exam and she does not have any symptoms to suggest that at this time. I will plan to see her again in the spring. I did advise her to contact me in the interim if she has any problems or questions I can be of assistance with. Sherry was comfortable with this plan. Thank you again for allowing me to participate in Sherry's care. I shall continue to keep you advised of her progress.. 04/15/2025 Elevated liver function tests (ICD-10 - R79.89) Overall, Sherry appears well. We did review her negative colonoscopy from 2019 and I did advise her of the need for a follow-up screening colonoscopy in 2028 given no sign of adenomas in 2019 or 2012, and no family history of colorectal cancer. In regard to her ongoing GI symptoms this sounds quite consistent with irritable bowel syndrome as well as probably a component of some lactose intolerance. I did review with her that she should try to avoid dairy products with lactose and use things such as almond milk and lactose-free ice cream. Given her negative colonoscopy in 2019, including biopsies from the colon, I do not think a repeat colonoscopy is presently required. Her reflux also seems to be stable on the omeprazole and I do not think any repeat upper endoscopy is required. Her upper endoscopy in 2012 was not revealing in regard to any significant esophagitis or Denson's esophagus. In regard to the elevated LFTs I do feel this is in relation to fatty liver and I did review this with her. We did review the obvious need to lose weight, practice dietary discretion, and to maximally control her hyperlipidemia . At this point given the minimal elevations I do not think she requires a liver biopsy. However I shall have her undergo a liver ultrasound, along with the liver workup, including iron studies and autoimmune studies. At this point I do not see any stigmata of chronic liver disease on her exam and she does not have any symptoms to suggest that at this time. I will plan to see her again in the spring. I did advise her to contact me in the interim if she has any problems or questions I can be of assistance with. Sherry was comfortable with this plan. Thank you again for allowing me to participate in Sherry's care. I shall continue to keep you advised of her progress.. 04/15/2025 Fatty liver (ICD-10 - K76.0) Overall, Sherry appears well. We did review her negative colonoscopy from 2018 and I did advise her of the need for a follow-up screening colonoscopy in 2028 given no sign of adenomas in 2018 or 2012, and no family history of colorectal cancer. In regard to her ongoing GI symptoms this sounds quite consistent with irritable bowel syndrome as well as probably a component of some lactose intolerance. I did review with her that she should try to avoid dairy products with lactose and use things such as almond milk and lactose-free ice cream. Given her negative colonoscopy in 2019, including biopsies from the colon, I do not think a repeat colonoscopy is presently required. Her reflux also seems to be stable on the omeprazole and I do not think any repeat upper endoscopy is required. Her upper endoscopy in 2012 was not revealing in regard to any significant esophagitis or Denson's esophagus. In regard to the elevated LFTs I do feel this is in relation to fatty liver and I did review this with her. We did review the obvious need to lose weight, practice dietary discretion, and to maximally control her hyperlipidemia . At this point given the minimal elevations I do not think she requires a liver biopsy. However I shall have her undergo a liver ultrasound, along with the liver workup, including iron studies and autoimmune studies. At this point I do not see any stigmata of chronic liver disease on her exam and she does not have any symptoms to suggest that at this time. I will plan to see her again in the spring. I did advise her to contact me in the interim if she has any problems or questions I can be of assistance with. Sherry was comfortable with this plan. Thank you again for allowing me to participate in Sherry's care. I shall continue to keep you advised of her progress.. 04/15/2025 Colon cancer screening (ICD-10 - Z12.11) Repeat colonoscopy in 06/2029 Overall, Sherry appears well. We did review her negative colonoscopy from 2018 and I did advise her of the need for a follow-up screening colonoscopy in 2028 given no sign of adenomas in 2019 or 2012, and no family history of colorectal cancer. In regard to her ongoing GI symptoms this sounds quite consistent with irritable bowel syndrome as well as probably a component of some lactose intolerance. I did review with her that she should try to avoid dairy products with lactose and use things such as almond milk and lactose-free ice cream. Given her negative colonoscopy in 2018, including biopsies from the colon, I do not think a repeat colonoscopy is presently required. Her reflux also seems to be stable on the omeprazole and I do not think any repeat upper endoscopy is required. Her upper endoscopy in 2012 was not revealing in regard to any significant esophagitis or Denson's esophagus. In regard to the elevated LFTs I do feel this is in relation to fatty liver and I did review this with her. We did review the obvious need to lose weight, practice dietary discretion, and to maximally control her hyperlipidemia . At this point given the minimal elevations I do not think she requires a liver biopsy. However I shall have her undergo a liver ultrasound, along with the liver workup, including iron studies and autoimmune studies. At this point I do not see any stigmata of chronic liver disease on her exam and she does not have any symptoms to suggest that at this time. I will plan to see her again in the spring. I did advise her to contact me in the interim if she has any problems or questions I can be of assistance with. Sherry was comfortable with this plan. Thank you again for allowing me to participate in Sherry's care. I shall continue to keep you advised of her progress.. Plan Of Treatment Treatment Notes Assessment Notes Irritable bowel syndrome with diarrhea S witch to a Lactose-free milk and Ice Cream like Marne Milk, Soy MIlk, etc to see if that helps your stomach symptoms like the diarrhea, gas, bloating, etc Colon cancer screening Repeat colonoscop y in 06/2029 Pending Test Test Name Order Date LIVER PROFILE 04/15/2025 IRON + IBC (FE) 04/15/2025 CBC w DIFF 04/15/2025 ALPHA-FETOPROTEIN,TUMOR MARKER Prothrombin Time INR 04/15/2025 Ferritin 04/15/2025 Alpha 1 Anti-trypsin 04/15/2025 Liver Fibrosis Pnl 04/15/2025 JOANIE Reflex Titer and Pattern 04/15/2025 Mitochondrial Antibody 04/15/2025 Smooth Muscle Antibody 04/15/2025 US abdomen comp w elastography Next Appt Details Follow Up: Spring 2025, Reas on: Progress Notes * LEONID HUNTEROB:1960 ( 64 yo F)Acc No.[id number]:04/15/2025 Progress Notes Patient: SHERRY ANTHONY Provider: Tomasa Peña MD :1960 A ge:64 Y S ex:Female Date:04/15/2025 Address:[address] [place] [address] , [place], [id number] Pcp:Cassy Mtz Subjective: * Chief Complaints: * 1 . Patient presents today for a colonoscopy. * HPI: i ncontinence: I saw Sherry in consultation today regarding further evaluation of her elevated LFTs and presumed fatty liver, irregular bowel movements, gastroesophageal reflux, and discussion of colorectal cancer screening. I last saw Sherry in 2019, at which time she underwent a colonoscopy. This did not reveal any sign of tubular adenomas or other significant pathology. Biopsies from the colon were negative for any underlying microscopic colitis and a single polyp that was removed was only hyperplastic. She also had a negative colonoscopy in 2012 other than a hyperplastic polyp as well. Since that time she has basically been feeling well but has been noted to have some slightly elevated LFTs. In September 2023 she had an AST of 46 and ALT of 48, in April 2024 she had an AST of 51 and ALT of 50, and in October of this year she had an AST of 42 and ALT of 45. All of those liver profiles had normal total bilirubin levels, normal alkaline phosphatase levels, and normal albumin. She reports that she has not had any imaging of her liver. She denies any pre-existing history of liver disease in herself or family members. She does not use any significant dotty of alcohol. She does have underlying risk factors for fatty liver including that of obesity, dietary indiscretion, and hyperlipidemia. She denies any history of diabetes. He did have negative hepatitis B and C serologies in 2022. She does describe a fair amount of dietary indiscretion, particular when she is under stress. She has been having some irregular bowel movements ranging from some loose stool to constipation. She does have some cramping and bloating. She does describe drinking about 1 gallon of milk over the course of every week. She also will have things like ice cream. She denies any hematochezia nor melena. She denies any known family history of inflammatory bowel disease, colorectal cancer, nor celiac disease. She did have negative celiac disease laboratories in 2016. Overall she reports that she generally feels fairly well. She describes a good appetite and denies any significant heartburn or dysphagia on her daily omeprazole. She denies any early satiety, nausea, nor vomiting. She denies any abdominal pain, jaundice, nor unintentional weight loss. * Medical History: D enies [place],DM,CVA,Lung disease,renal disease, GERD- EGD in 04/2013- small HH, gastric polyps, no esophagitis, no Denson's, Hyperlipidemia, Depression, Hypothyroidism, Colonoscopy in 04/2013- hyperplastic polyp, diverticulosis, internal hemorrhoids, IBS- neg labs for celiac disease in 2017, Colonoscopy in 2019 was negative for inflammatory bowel disease. Biopsies were negative for microscopic colitis and a single polyp that was removed was only hyperplastic., Elevated LFTs presumed secondary to fatty liver. Just minimal elevations of the transaminases have been noted but with a normal total bilirubin and alk phos. Hepatitis B and C serologies were negative in 2022.. * Surgical History: t onsillectomy , appendectomy . * Family History: F ather: , diagnosed with Diabetes. M other: . M geraldine Grand Father: prostate cancer in his 80's. No 1st degree relatives with colorectal cancer. No family history of liver cancer. * Social History: T obacco Use: T obacco Use/Smoking A re you a: nonsmoker. M iscellaneous: C affeine: 2 cups per day. Marital status: single. Occupation: disabiltiy. D rug/Alcohol: A LILLIAN-C (Standard) D id you have a drink containing alcohol in the past year? N o,?Points 0 , I nterpretation N egative. N onsmoker; no sig. alcohol 1-2 glasses of milk daily, eats 1 yogurt daily. * Medications: T aking Loratadine 10 MG Tablet 1 tablet Orally Once a day , Taking Omeprazole 20 MG Capsule Delayed Release 1 capsule Orally Once a day , Taking Simvastatin 40 MG Tablet 1 tablet in the evening Orally Once a day , Taking Levoxyl 125 MCG Tablet 1 tablet on an empty stomach in the morning Orally Once a day , Taking Sertraline HCl 50 MG Tablet 1 tablet Orally Once a day , Taking Centrum - Tablet Chewable as directed Orally once a day , Medication List reviewed and reconciled with the patient * Allergies: N .K.D.A. Objective: * Vitals: W t:167.8lbs, Ht: 61.5 in, BMI:31.19Index, BP:001/01mm Hg, Temp:96.9, Wt-k.11. Assessment: * Assessment: 1. I rritable bowel syndrome with diarrhea - K58.0 (Primary) 2 . G astroesophageal reflux disease without esophagitis - K21.9 3 . E levated liver function tests - R79.89 4 . F atty liver - K76.0 5 . C olon cancer screening - Z12.11 Overall, Sherry appears well. We did review her negative colonoscopy from 2018 and I did advise her of the need for a follow-up screening colonoscopy in 2028 given no sign of adenomas in 2019 or 2012, and no family history of colorectal cancer. In regard to her ongoing GI symptoms this sounds quite consistent with irritable bowel syndrome as well as probably a component of some lactose intolerance. I did review with her that she should try to avoid dairy products with lactose and use things such as almond milk and lactose-free ice cream. Given her negative colonoscopy in 2019, including biopsies from the colon, I do not think a repeat colonoscopy is presently required. Her reflux also seems to be stable on the omeprazole and I do not think any repeat upper endoscopy is required. Her upper endoscopy in 2013 was not revealing in regard to any significant esophagitis or Denson's esophagus. In regard to the elevated LFTs I do feel this is in relation to fatty liver and I did review this with her. We did review the obvious need to lose weight, practice dietary discretion, and to maximally control her hyperlipidemia. At this point given the minimal elevations I do not think she requires a liver biopsy. However I shall have her undergo a liver ultrasound, along with the liver workup, including iron studies and autoimmune studies. At this point I do not see any stigmata of chronic liver disease on her exam and she does not have any symptoms to suggest that at this time. I will plan to see her again in the spring. I did advise her to contact me in the interim if she has any problems or questions I can be of assistance with. Sherry was comfortable with this plan. Thank you again for allowing me to participate in Sherry's care. I shall continue to keep you advised of her progress.. Plan: * Treatment: 2. E levated liver function tests L AB: LIVER PROFILE L AB: IRON + IBC (FE) L AB: CBC w DIFF L AB: ALPHA-FETOPROTEIN,TUMOR MARKER L AB: Prothrombin Time INR L AB: Ferritin L AB: Alpha 1 Anti-trypsin L AB: Liver Fibrosis Pnl L AB: JOANIE Reflex Titer and Pattern L AB: Mitochondrial Antibody L AB: Smooth Muscle Antibody I maging: US abdomen comp w elastography * 3.?Fatty liver?LAB: LIVER PROFILE ?LAB: IRON + IBC (FE) ?LAB: CBC w DIFF ?LAB: ALPHA-FETOPROTEIN,TUMOR MARKER ?LAB: Prothrombin Time INR ?LAB: Ferritin ?LAB: Alpha 1 Anti-trypsin ?LAB: Liver Fibrosis Pnl ?LAB: JOANIE Reflex Titer and Pattern ?LAB: Mitochondrial Antibody ?LAB: Smooth Muscle Antibody ?Imaging: US abdomen comp w elastography* sched for 06/06/25 at 9:00 a [facility] ultrasound dept 2nd floorfasting 8 hrs prior * 4.?Colon cancer screening? Notes: Repeat colonoscopy in 06/2029?? * Preventive Medicine: Counseling: C are goal follow-up plan: A mahendra Normal BMI Follow-up D ietary management education, guidance, and counseling, B [place] management provided Y es. * Follow Up: S ann marie 2025 * * The named appointment provid er may or may not be the originator of this progress note, and it is not deemed complete until electronically signed by the appointment provider. Sign off status: Pending * Provider: Tomasa Peña MD Date: 0 04/15/2025 Generated for Familia moraes/Bert/Cecilyitting on: 0 04/18/2025 09:33 AM EDT History and Physical Notes * HPI (History of Present Illness) Category Sub-Category Detail Notes Category Not es incontinence I saw Sherry in consultation today regarding further evaluation of her elevated LFTs and presumed fatty liver, irregular bowel movements, gastroesophageal reflux, and discussion of colorectal cancer screening. I last saw Sherry in 2018, at which time she underwent a colonoscopy. This did not reveal any sign of tubular adenomas or other significant pathology. Biopsies from the colon were negative for any underlying microscopic colitis and a single polyp that was removed was only hyperplastic. She also had a negative colonoscopy in 2012 other than a hyperplastic polyp as well. Since that time she has basically been feeling well but has been noted to have some slightly elevated LFTs. In September 2023 she had an AST of 46 and ALT of 48, in April 2024 she had an AST of 51 and ALT of 50, and in October of this year she had an AST of 42 and ALT of 45. All of those liver profiles had normal total bilirubin levels, normal alkaline phosphatase levels, and normal albumin. She reports that she has not had any imaging of her liver. She denies any pre-existing history of liver disease in herself or family members. She does not use any significant dotty of alcohol. She does have underlying risk factors for fatty liver including that of obesity, dietary indiscretion, and hyperlipidemia. She denies any history of diabetes. He did have negative hepatitis B and C serologies in 2022. She does describe a fair amount of dietary indiscretion, particular when she is under stress. She has been having some irregular bowel movements ranging from some loose stool to constipation. She does have some cramping and bloating. She does describe drinking about 1 gallon of milk over the course of every week. She also will have things like ice cream. She denies any hematochezia nor melena. She denies any known family history of inflammatory bowel disease, colorectal cancer, nor celiac disease. She did have negative celiac disease laboratories in 2017. Overall she reports that she generally feels fairly well. She describes a good appetite and denies any significant heartburn or dysphagia on her daily omeprazole. She denies any early satiety, nausea, nor vomiting. She denies any abdominal pain, jaundice, nor unintentional weight loss.
[2025-04-18 08:52] LABS: MANUAL DIFF FLAG NO
[2025-04-18 09:22] LABS: Hematocrit 40.5 % (37.0-47.0); Hemoglobin 13.3 g/dl (12.0-16.0); Imm Gran Abs Auto 0.02 X10*3/uL (0.00-0.03); Imm Gran Pct Auto 0.3 % (0.0-0.4); Lymphocytes Absolute Auto 1.8 X10*3/uL (1.2-4.9); Mean Corpuscular HGB Conc 32.8 g/dl (31.0-35.0); Mean Corpuscular Hemoglobin 29.8 pg (27.0-33.0); Mean Corpuscular Volume 90.8 fL (80.0-98.0); NRBC Abs Auto 0.000 X10*3/uL (0.0-0.012); NRBC Pct Auto 0.0 /100WBC (0.0-0.2); Platelet Count 196 X10*3/uL (160-400); Red Blood Count 4.46 X10*6/uL (4.20-5.50); White Blood Count 7.3 X10*3/uL (4.8-10.8)
--- OUTSIDE RECORDS SUMMARY | 2025-04-18 09:33 | XMS_ITS | Patient Health Record ---
Author Organization [facility] Address [address] [place] [address] Care Team Providers Care Accounts Payable Coordinator Name Role Phone EmaniCassy oreilly Primary Care Provider UnavailTaz Ambriz Unavailable [phone] Allergies No Known Allergies Results Component Value Reference Range Notes Complete Blood Count Auto Di ff (Not yet reviewed by provider) Interpretation: Performing Lab:[facility], [address] [place] [phone] Notes/Report: White Blood Count 7.3 4.8-10.8 X10*3/uL Red Blood Count 4.46 4.20-5.50 X10*6/uL Hemoglobin 13.3 12.0-16.0 g/dl Hematocrit 40.5 37.0-47.0 % Mean Corpuscular Volume 90.8 80.0-98.0 fL Mean Corpuscular Hemoglobin 29.8 27.0-33.0 pg Mean Corpuscular HGB Conc 32.8 31.0-35.0 g/dl Red Cell Distribution Width 13.9 11.0-16.0 % Platelet Count 196 160-400 X10*3/uL Mean Platelet Volume 12.4 9.4-12.3 fL Neutrophils Percent Auto 65.7 45-73 % Imm Gran Pct Auto 0.3 0.0-0.4 % Lymphocytes Percent Auto 24.7 20-40 % Monocytes Percent Auto 6.4 2-11 % Eosinophils Percent Auto 2.2 0-4 % Basophils Percent Auto 0.7 0-2 % NRBC Pct Auto 0.0 0.0-0.2 /100WBC Neutrophils Absolute Auto 4.8 2.0-8.3 x10*3/u L Imm Gran Abs Auto 0.02 0.00-0.03 X10*3/uL Lymphocytes Absolute Auto 1.8 1.2-4.9 X10*3/u L Monocytes Absolute Auto 0.5 0.1-1.2 X10*3/uL Eosinophils Absolute Auto 0.2 0.0-0.4 X10*3/u L Basophils Absolute Auto 0.1 0.0-0.2 X10*3/uL NRBC Abs Auto 0.000 0.0-0.012 X10*3/uL Reason For Referral No Information Medications Medication [...] as directed Orally once a day Active Loratadine 10 MG 1 tablet Orally Once a day Active Omeprazole 20 MG 1 capsule Orally Once a day Active Immunizations Vaccine Route Administration Date Status Comme nts Influenza Unknown 04/22/2018 Administered Influenza Unknown 04/27/2024 Administered Social History AUDIT-C (Standard) Question Answer Notes Did you have a drink containing alcohol in the p ast year? No Points 0 Interpretation Negative Section Notes: Nonsmoker; no sig. alcohol 1-2 glasses of milk daily, eats 1 yogurt daily Nonsmoker; no sig. alcohol Nonsmoker; no sig. alcohol 2-3 glassess of milk daily, eats 1 yogurt daily Nonsmoker; no sig. alcohol 1-2 glasses of milk daily, eats 1 yogurt daily Problems Problem Type SNOMED Code ICD Code Onset Dates Problem Status W/U Status Risk Notes Problem Colon cancer screening (308586692) Colon cancer screening (Z12.11) Active confirmed Problem 570199116 Abdominal bloati ng (R14.0) Active confirmed Problem 649366999 Irritable bowel syndrome with diarrhea (K58.0) Active confirmed Problem Elevated liver enzymes level (029952564) Elevated liver function tests (R79.89) Active confirmed Problem 070865106 Gastroesophageal reflux disease without esophagitis (K21.9) Active confirmed Problem Fatty liver (547248838) Fatty liver (K76.0) Active confirmed Problem 96551560 Rectal bleed (K62.5) Active confirmed Vital Signs Temperature 96.9 degrees Fahrenheit 04/15/2025 Blood pressure diastolic 01 mm Hg 04/15/2025 Height 61.5 in 04/15/2025 Blood pressure systolic 001 mm Hg 04/15/2025 Weight 167.8 lbs 04/15/2025 BMI 31.19 kg/m2 04/15/2025 Encounters Encounter Location Date Provider Diagnosis [facility] [address] [place] [phone] 04/15/2025 Taz Peña Irritable bowel synd joseluis with diarrhea K58.0 ; Gastroesophageal reflux disease without esophagitis K21.9 ; Elevated liver function tests R79.89 ; Fatty liver K76.0 and Colon cancer screening Z12.11 [facility] [address] [place] [phone] 08/31/2024 Taz Peña [facility] [address] [place] [phone] 09/23/2024 Taz Peña [facility] [address] [place] [phone] 01/14/2025 Taz Peña [facility] [address] [place] [phone] 04/15/2025 Taz Peña Assessments Encounter Date Diagnosis (ICD Code) Assessment Notes Treatment Notes Treatment Clinical Notes Section Notes 04/15/2025 Irritable bowel syndrome with diarrhea (ICD-10 - K58.0) Switch to a Lactose-free milk and Ice Cream like [place] Milk, Soy MIlk, etc to see if [...] advised of her progress.. Plan Of Treatment Pending Test Test Name Order Date GI BIOPSY 06/18/2019 LIVER PROFILE 04/15/2025 IRON + IBC (FE) 04/15/2025 CBC w DIFF 04/15/2025 ALPHA-FETOPROTEIN,TUMOR MARKER Complete Blood Count Auto Diff Prothrombin Time INR 04/15/2025 Ferritin 04/15/2025 Alpha 1 Anti-trypsin 04/15/2025 Liver Fibrosis Pnl 04/15/2025 JOANIE Reflex Titer and Pattern 04/15/2025 Mitochondrial Antibody 04/15/2025 Smooth Muscle Antibody 04/15/2025 US abdomen comp w elastography Future Test Test Name Order Date UPPER GI ENDOSCOPY 01/15/2013 COLONOSCOPY 01/15/2013 COLONOSCOPY 03/30/2019 Insurance Providers Payer Name Payer Address Payer Phone Subscriber Number Group Number Insured Name Patient Relationship to Insured Coverage Start Date Coverage End Date [facility] [address] [place] [address] [id number] SHERRY HUNTER Self - patient is the insured Medical (General) History Medical History History ICD Code Denies [place],DM,CVA,Lung disease,renal dise ase GERD- EGD in 04/2013- small HH, gastric p olyps, no esophagitis, no Denson's Hyperlipidemia Depression Hypothyroidism Colonoscopy in 04/2013- hyper plastic polyp, diverticulosis, internal hemorrhoids IBS- neg labs for celiac disease in 2016 Colonoscopy in 2019 was nega tive for inflammatory bowel disease. Biopsies were negative for microscopic colitis and a single polyp that was removed was only hyperplastic. Elevated LFTs presumed secon valdez to fatty liver. Just minimal elevations of the transaminases have been noted but with a normal total bilirubin and alk phos. Hepatitis B and C serologies were negative in 2022. Surgical History Surgery Date(Month/Year) appendectomy tonsillectomy
[2025-04-18 09:37] LABS: INTERNATIONAL NORM RATIO 1.0 (0.9-1.1); Prothrombin Time 11.4 SEC (10.9-12.4)
[2025-04-18 10:10] LABS: Alanine Aminotransferase 52 U/L (0-31); Albumin Level 4.6 g/dL (3.5-5.0); Alkaline Phosphatase 105 U/L (39-117); Anion Gap 14 (12-20); Aspartate Amino Transferase 61 U/L (5-31); Blood Urea Nitrogen 12 mg/dL (9-16); Calcium 8.5 mg/dL (8.4-10.2); Carbon Dioxide 21 mmol/L (22-29); Chloride 111 mmol/L (96-108); Cholesterol 126 mg/dL (<200); Estimated Glomerular Filt Rate > 60; HDL Cholesterol 36 mg/dL (>40); Potassium 3.7 mmol/L (3.3-5.1); Sodium 142 mmol/L (135-145); Total Protein 7.2 g/dL (6.5-8.0); Triglycerides 167 mg/dL (<150)
[2025-04-18 10:11] LABS: Thyroid Stimulating Hormone 0.72 uIU/mL (0.32-4.0)
[2025-04-18 10:13] LABS: Alanine Aminotransferase 55 U/L (0-31); Albumin Level 4.7 g/dL (3.5-5.0); Alkaline Phosphatase 106 U/L (39-117); Aspartate Amino Transferase 56 U/L (5-31); Ferritin 131 ng/mL (10-250); Iron 67 mcg/dL (30-160); Percent Iron Saturation 25 % (15-50); Total Iron Binding Capacity 273 mcg/dL (228-428); Total Protein 7.2 g/dL (6.5-8.0); Unsaturated Iron Binding 206 ug/dL
[2025-04-22 10:18] LABS: Anti Nuclear Antibody Screen NEGATIVE (NEGATIVE)
[2025-04-26 23:48] LABS: FIB-ALT 39 U/L (6-29); FIB-Alpha-2-Macroglobulin 207 mg/dL (106-279); FIB-Apolipoprotein A1 149 mg/dL (101-198); FIB-GGT 52 U/L (3-65); FIB-Haptoglobin 197 mg/dL (43-212); FIB-Total Bilirubin 0.5 mg/dL (0.2-1.2); Liver Fibrosis Score 0.25; Liver Fibrosis Stage F0-F1; Nec Inflam Act Grade A0-A1; Nec Inflam Act Score 0.20
== END 2025-04-18 08:34 | disposition home or self-care (01) ==
LOC: HO.LAB 08:33
PROVIDERS: Absent Provider Internal Medicine; PCP Internal Medicine; Visit Provider Internal Medicine
DX: Z01.84 Encounter for antibody response examination (principal); E03.9 Hypothyroidism, unspecified; E78.00 Pure hypercholesterolemia, unspecified; I10 Essential (primary) hypertension; R74.01 Elevation of levels of liver transaminase levels; K76.0 Fatty (change of) liver, not elsewhere classified; R79.89 Other specified abnormal findings of blood chemistry
CPT/HCPCS: 36415; 80053; 80061; 80076; 81596; 82103; 82105; 82248; 82728; 83540; 84443; 85025; 85610; 86015; 86038; 86381

== ENCOUNTER 2025-06-06 08:35 | Outpatient (REF) | payer OTHER, SELFPAY ==
--- OUTSIDE RECORDS SUMMARY | 2023-12-11 07:00 | XMS_ITS ---
Author Organization [facility] Address [address] [place] [address] Care Team Providers Care Director Of Category Management Name Role Phone Cassy Mtz Primary Care Provider Unavailab Taz Mendoza Unavailable [phone] REASON FOR VISIT Patient presents today for a colon screening Encounters Encounter Location Date Provider Diagnosis [facility] [address] [place] [address] 12/11/2023 Taz Peña Plan Of Treatment No Information Progress Notes * LEONID HUNTEROB:1960 ( 64 yo F)Acc No.[id number]:12/11/2023 Progress Notes Patient: VENKAT ANTHONY Provider: Tomasa Peña MD :1960 A ge:62 Y S ex:Female Date:12/11/2023 Address:[address] [place] [address] [address] Yasmin gu[place]man [id number] Pcp:Cassy Mtz Subjective: * Chief Complaints: * 1 . Patient presents today for a colon screening. * Medical History: Objective: * Vitals: Assessment: Plan: * Treatment: * * The named appointment provid er may or may not be the originator of this progress note, and it is not deemed complete until electronically signed by the appointment provider. Sign off status: Pending * Provider: Tomasa Peña MD Date: 0 12/11/2023 Generated for Familia moraes/Bert/Cecilyitting on: 08:55 AM EDT
--- OUTSIDE RECORDS SUMMARY | 2024-04-13 06:30 | XMS_ITS ---
Author Organization [facility] Address [address] [place] [address] Care Team Providers Care Metabolic Specialist Name Role Phone Cassy Mtz Primary Care Provider Unavailab Taz Mendoza Unavailable [phone] REASON FOR VISIT Patient presents today for a colon screening Encounters Encounter Location Date Provider Diagnosis [facility] [address] [place] [address] 04/13/2024 Taz Peña Plan Of Treatment No Information Progress Notes * LEONID HUNTEROB:1960 ( 64 yo F)Acc No.[id number]:04/13/2024 Progress Notes Patient: VENKAT ANTHONY Provider: Tomasa Peña MD :1960 A ge:63 Y S ex:Female Date:04/13/2024 Address:[address] [place] [address] [address] Yasmin guzman [id number] Pcp:Cassy Mtz Subjective: * Chief Complaints: * [...] * Provider: Tomasa Peña MD Date: 0 04/13/2024 Generated for Familia moraes/Bert/eTmichaelitting on: 1 08:56 AM EDT
--- OUTSIDE RECORDS SUMMARY | 2024-08-31 06:30 | XMS_ITS ---
Author Organization [facility] Address [address] [place] [address] Care Team Providers Care Supervisor Farm Equipment Maintenance Name Role Phone Cassy Mtz Primary Care Provider Unavailab Taz Mnedoza Unavailable [phone] REASON FOR VISIT Patient presents today for a screening colonoscopy Encounters Encounter Location Date Provider Diagnosis [facility] [address] [place] [address] 08/31/2024 Taz Peña Plan Of Treatment No Information Progress Notes * LEONID HUNTEROB:1960 ( 64 yo F)Acc No.[id number]:08/31/2024 Progress Notes Patient: VENKAT ANTHONY Provider: Tomasa Peña MD :1960 A ge:63 Y S ex:Female Date:08/31/2024 Address:[address] [place] [address] [address] Yasmin guzman [id number] Pcp:Cassy Mtz Subjective: * Chief Complaints: * [...] 0 08/31/2024 Generated for Familia moraes/Bert/Cecilyitting on: 08:57 AM EDT
--- OUTSIDE RECORDS SUMMARY | 2024-09-23 06:00 | XMS_ITS ---
Author Organization [facility] Address [address] [place] [address] Care Team Providers Care Area Operations Director Name Role Phone Cassy Mtz Primary Care Provider Unavailab Taz Mendoza Unavailable [phone] REASON FOR VISIT Patient presents today for a colon screening Encounters Encounter Location Date Provider Diagnosis [facility] [address] [place] [address] 09/23/2024 Taz Peña Plan Of Treatment No Information Progress Notes * LEONID HUNTEROB:1960 ( 64 yo F)Acc No.[id number]:09/23/2024 Progress Notes Patient: VENKAT ANTHONY Provider: Tomasa Peña MD :1960 A ge:63 Y S ex:Female Date:09/23/2024 Address:[address] [place] [address] [address] Yasmin guzman [id number] Pcp:Cassy Mtz Subjective: * Chief Complaints: * [...] 0 09/23/2024 Generated for Familia moraes/Bert/Cecilyitting on: 1 08:55 AM EDT
--- OUTSIDE RECORDS SUMMARY | 2025-01-14 10:00 | XMS_ITS ---
Author Organization [facility] Address [address] [place] [address] Care Team Providers Care Bottle Sorter Name Role Phone Cassy Mtz Primary Care Provider Unavailab Taz Mendoza Unavailable [phone] REASON FOR VISIT Patient presents today for discuss colonoscopy Encounters Encounter Location Date Provider Diagnosis [facility] [address] [place] [address] 01/14/2025 Taz Peña Plan Of Treatment No Information Progress Notes * LEONID HUNTEROB:1960 ( 64 yo F)Acc No.[id number]:01/14/2025 Progress Notes Patient: VENKAT ANTHONY Provider: Tomasa Peña MD :1960 A ge:64 Y S ex:Female Date:01/14/2025 Address:[address] [place] [address] [address] [place] Pcp:Cassy Mtz Subjective: * Chief Complaints: * [...] * Provider: Tomasa Peña MD Date: 0 01/14/2025 Generated for Familia moraes/Bert/Cecilyitting on: 08:56 AM EDT
--- NOTE | ~2025-06-06 | US_ITS ---
EXAMINATION: US ABDOMEN COMPLETE WITH LIVER ELASTOGRAPHY HISTORY: ELEVATED LIVER FUNCTION TESTS TECHNIQUE: Real-time grayscale ultrasound imaging of the abdomen was performed and images were reviewed. COMPARISON: Correlation is made with a CT of the abdomen with contrast dated 03/30/2020. FINDINGS: Liver: The right lobe of the liver measures 18.5 cm in size. The left lobe of the liver measures 15.3 cm in size. The liver demonstrates increased echotexture, consistent with steatosis. No focal mass or intrahepatic biliary ductal dilatation is identified. There is normal hepatopedal flow in the portal vein. Ultrasound elastography of the liver was performed with 10 separate measurements of the liver parenchyma with the patient in the supine position. Measurements were obtained approximately 2 cm below Abdelrahman's capsule and perpendicular to the capsule. The median shear wave velocity is 1.12 m/s. The interquartile range/median (IQR/median) is 0.10. Gallbladder and biliary tree: The gallbladder is unremarkable, without evidence of calculi, wall thickening, or pericholecystic fluid. There is no sonographic Aleman sign. The common bile duct is normal in caliber measuring 2 mm. Kidneys: The right kidney measures 10.6 cm in length. The left kidney measures 11.2 cm in length. The kidneys are unremarkable, without evidence of masses, hydronephrosis, or calculi. Pancreas: The pancreatic head, neck, and body are unremarkable. The pancreatic tail is obscured by bowel gas. Spleen: The spleen is enlarged, measuring 14.1 cm in length. Abdominal aorta and inferior vena cava: The visualized portions of the abdominal aorta and inferior vena cava are normal in caliber. There is no free fluid in the abdomen. US/US abdomen comp w elastography IMPRESSION: Hepatosplenomegaly and hepatic steatosis. The median shear wave velocity in the liver is 1.12 m/s, corresponding to a median liver stiffness of 3.8 kPa. The IQR/median value is 0.11. This is indicative of a quality data set. Findings are indicative of a normal elastography value with a low likelihood of severe fibrosis or cirrhosis. REFERENCE: Society of Radiologists in Ultrasound Liver Stiffness Thresholds (2019): LIVER STIFFNESS THRESHOLDS: *Shear wave velocity less than 1.3 m/s (Liver Stiffness equal or less than 5 kPa): High probability of being normal. *Shear wave velocity less than 1.7 m/s (Liver Stiffness less than 9 kPa): In the absence of other known clinical signs, rules out compensated advanced chronic liver disease. *Shear wave velocity between 1.7-2.1 m/s (Liver Stiffness 9-13 kPa): Suggestive of compensated advanced chronic liver disease but need further test for confirmation. *Shear wave velocity between 2.1-2.4 m/s (Liver Stiffness 13-17 kPa): Rules in compensated advanced chronic liver disease. *Shear wave velocity greater than 2.4 m/s (Liver Stiffness over 17 kPa): Suggestive of clinically significant portal hypertension. QUALITY OF DATA SET: *IQR/Median value equal or less than 0.30 implies a quality data set. *IQR/Median value over 0.30 implies a poor quality data set. SIGNIFICANT CHANGE FROM PRIOR EXAM: Significant change if liver stiffness measurement is 10% or greater from prior exam. OTHER CONSIDERATIONS: The stage of liver fibrosis may be overestimated in the setting of acute hepatitis, liver inflammation, elevated liver function tests, hepatic vascular congestion, obstructive cholestasis, non-fasting state, and infiltrative diseases such as amyloidosis and lymphoma. In some patients with NAFLD, the liver stiffness thresholds for compensated advanced chronic liver disease may be lower. In causes other than viral hepatitis and NAFLD, liver stiffness thresholds are not well established. Electronically signed by: Taz Rowley MD 06/06/2025 11:48 AM EDT
--- OUTSIDE RECORDS SUMMARY | 2025-06-06 08:56 | XMS_ITS | Patient Health Record ---
Author Organization [facility] Address [address] [place] [address] Care Team Providers Care Christmas Tree Farm Worker Name Role Phone EmaniCassy oreilly Primary Care Provider Unavailab Taz Mendoza Unavailable [phone] Allergies No Known Allergies Results Component Value Reference Range Notes Prothrombin Time INR Reviewed date:05/01/2025 03:14:51 PM Interpretation: Performing Lab:[facility], [address] [place] [phone] Notes/Report: Prothrombin Time 11.4 10.9-12.4 SEC INTERNATIONAL NORM RATIO 1.0 0.9-1.1 INTERNATIONAL NORMALIZED RATIO (INR) REFERENCE RANGES Reference Range For patients not on anticoagulant therapy: 0.9 - 1.1 INR ranges for oral anticoagulant therapy: For prevention and treatment of venous thrombosis and pulmonary embolism: 2.0 - 3.0 For acute myocardial infarction with aspirin therapy: 2.0 - 3.0 For acute myocardial infarction without aspirin therapy: 3.0 - 4.0 For patients with mechanical prosthetic heart valves: 2.5 - 3.5 Ferritin Reviewed date:05/01/2025 03:15:15 PM Interpretation: Performing Lab:[facility], [address] [place] [phone] Notes/Report: Ferritin 131 10-250 ng/mL Alpha 1 Anti-trypsin Reviewed date:05/01/2025 03:15:04 PM Interpretation: Performing Lab:[facility], [address] [place] [phone] Notes/Report: Alpha 1 Anti-trypsin 84 83-199 mg/dL THIS TEST WAS PERFORMED AT: [facility] [address] [place] [phone] SEFERINO HUGO MD Liver Fibrosis Pnl Reviewed date:05/01/2025 03:15:25 PM Interpretation: Performing Lab:[facility], [address] [place] [phone] Notes/Report: Liver Fibrosis Score 0.25 Liver Fibrosis Stage F0-F1 Liver Fibrosis Interpretation SEE NOTE no fibrosis Fibro Test Score (f) Metavir Score f>=0 and f<=0.21 : F0 (no fibrosis) f>0.21 and f<=0.27 : F0-F1 (no fibrosis) f>0.27 and f<=0.31 : F1 (minimal fibrosis) f>0.31 and f<=0.48 : F1-F2 (minimal fibrosis) f>0.48 and f<=0.58 : F2 (moderate fibrosis) f>0.58 and f<=0.72 : F3 (advanced fibrosis) f>0.72 and f<=0.74 : F3-F4 (advanced fibrosis) f>0.74 and f<=1.00 : F4 (severe fibrosis) Nec Inflam Act Score 0.20 Nec Inflam Act Grade A0-A1 Nec Inflam Act Interpretation SEE NOTE no activity ActiTest Score (a) Metavir Score a>=0 and a<=0.17 : A0 (no activity) a>0.17 and a<=0.29 : A0-A1 (no activity) a>0.29 and a<=0.36 : A1 (minimal activity) a>0.36 and a<=0.52 : A1-A2 (minimal activity) a>0.52 and a<=0.60 : A2 (significant activity) a>0.60 and a<=0.62 : A2-A3 (significant activity) a>0.62 and a<=1.00 : A3 (severe activity) NAT-Tnwkr-8-Macroglobulin 207 106-279 mg/dL FIB-Haptoglobin 197 43-212 mg/dL FIB-Apolipoprotein A1 149 101-198 mg/dL FIB-Total Bilirubin 0.5 0.2-1.2 mg/dL FIB-GGT 52 3-65 U/L FIB-ALT 39 6-29 U/L Reference ID [id number] Footnote SEE NOTE The reliability of results is dependent on compliance with the preanalytical and analytical conditions recommended by [employer]. The tests have to be deferred for: acute hemolysis, acute hepatitis, acute inflammation, extra hepatic cholestasis. The advice of a specialist should be sought for interpretation in chronic hemolysis and Gilbert's syndrome. The test interpretation is not validated in liver transplant patients. Isolated extreme values of one of the components should lead to caution in interpreting the results. In case of discordance between a biopsy result and a test, it is recommended to seek the advice of a specialist. The causes of these discordances could be due to a flaw of the test or to a flaw in the biopsy: i.e. a liver biopsy has a 33% variability rate for one fibrosis stage. FibroTest is interpretable for chronic hepatitis B and C, alcoholic and non alcoholic steatosis. ActiTest is interpretable for chronic hepatitis B and C. The performance characteristics have been determined by [facility]. It has not been cleared or approved by the U.S. Food and Drug Administration. Performance characteristics refer to the analytical performance of the test. [employer], the associated logo, [employer] and all associated [employer] foss are the registered trademarks of [employer]. All third republican foss - (R) and (TM) - are the property of their respective owners. (C) 1557-3642 [employer]. All rights reserved. THIS TEST WAS PERFORMED AT: [facility] [address] [place] [address] AMANDA TRONCOSO MD,PHD,MELINA JOANIE Reflex Titer and Pattern Reviewed date:05/01/2025 03:15:35 PM Interpretation: Performing Lab:[facility], [address] [place] [phone] Notes/Report: Anti Nuclear Antibody Screen NEGATIVE NEGATIVE JOANIE IFA is a first line screen for detecting the presence of up to approximately 150 autoantibodies in various autoimmune diseases. A negative JOANIE IFA result suggests an JOANIE-associated autoimmune disease is not present at this time, but is not definitive. If there is high clinical suspicion for Sjogren's syndrome, testing for anti-SS-A/Ro antibody should be considered. Anti-Rossi-1 antibody should be considered for clinically suspected inflammatory myopathies. AC-0: Negative International Consensus on JOANIE Patterns (https://doi.org/10.1515/ccl m-5047-0251) For additional information, please refer to http://education.[employer] Wildfire.com/faq/FLB545 (This link is being provided for informational/ educational purposes only.) THIS TEST WAS PERFORMED AT: [facility] [address] [place] [phone] SEFERINO HUGO MD Anti Nuclear Antibody Titer TNP Anti Nuclear Antibody Pattern TNP JOANIE Titer 2 TNP JOANIE Pattern 2 TNP JOANIE Titer 3 TNP JOANIE Pattern 3 TNP Mitochondrial Antibody Reviewed date:05/01/2025 03:15:47 PM Interpretation: Performing Lab:[address] [phone] Notes/Report: Mitochondrial Antibodies NEGATIVE NEGATIVE The specimen was negative for cytoplasmic antibodies, however additional staining was observed suggesting the presence of Antinuclear Antibodies. Consider requesting order code 249, JOANIE Screen, IFA with Reflex to Titer and Pattern, or order code [id number], JOANIE Screen, IFA w/reflex Titer/Pattern, and Reflex to Multiplex 11 Ab [place], if clinically indicated. THIS TEST WAS PERFORMED AT: [facility] [address] [place] [phone] SEFERINO HUGO MD Mitochondrial Ab Titer TNP Smooth Muscle Antibody Reviewed date:05/01/2025 03:15:57 PM Interpretation: Performing Lab:[address] [phone] Notes/Report: Smooth Muscle Antibody <20 <20 U Reference Range: <20 U: Negative >or=20 U: Positive Antibodies recognizing actin are the main component of smooth muscle antibodies associated with auto- immune liver disease. Actin antibodies are found in approximately 75% of patients with autoimmune hepatitis (AIH) type 1, approximately 65% of patients with autoimmune cholangitis, approximately 30% of patients with primary biliary cirrhosis and approximately 2% of healthy controls. High values are closely correlated with AIH type 1. THIS TEST WAS PERFORMED AT: [facility]/[address] [phone] SARY MEDELLIN MD,PHD Complete Blood Count Auto Di ff Reviewed date:05/01/2025 03:13:57 PM Interpretation: Performing Lab:[address] [phone] Notes/Report: White Blood Count 7.3 4.8-10.8 X10*3/uL [...] X10*3/uL NRBC Abs Auto 0.000 0.0-0.012 X10*3/uL Liver Panel Reviewed date:05/01/2025 03:14:25 PM Interpretation: Performing Lab:[facility], [address] [place] [phone] Notes/Report: Bilirubin Total 0.6 0.0-1.0 mg/dL Bilirubin Direct 0.2 0.0-0.5 mg/dL Aspartate Amino Transferase 56 5-31 U/L Alanine Aminotransferase 55 0-31 U/L Total Protein 7.2 6.5-8.0 g/dL Albumin Level 4.7 3.5-5.0 g/dL Alkaline Phosphatase 106 39-117 U/L IRON PROFILE Reviewed date:04/21/2025 06:42:46 PM Interpretation: Performing Lab:[facility], [address] [place] [phone] Notes/Report: Iron 67 30-160 mcg/dL Total Iron Binding Capacity 273 228-428 mcg/d L Percent Iron Saturation 25 15-50 % Unsaturated Iron Binding 206 Alpha Fetoprotein Reviewed date:05/01/2025 03:14:35 PM Interpretation: Performing Lab:[facility], [address] [place] [phone] Notes/Report: Alpha Fetoprotein 2.0 Reference Range: <6.1 The use of AFP as a tumor marker in females is not recommended. This test was performed using the Trinh Mirian chemiluminescent method. Values obtained from different assay methods cannot be used interchangeably. AFP levels, regardless of value, should not be interpreted as absolute evidence of the presence or absence of disease. THIS TEST WAS PERFORMED AT: [facility] [address] [place] [phone] SEFERINO HUGO MD Reason For Referral No Information Medications Medication [...] Status Risk Notes Problem Colon cancer screening (342447516) Colon cancer screening (Z12.11) Active confirmed Problem Abdominal bloating (341979562) Abdominal bloating (R14.0) Active confirmed Problem Irritable bowel syndrome with diarrhea (568802730) Irritable bowel syndrome with diarrhea (K58.0) Active confirmed Problem Elevated liver enzymes level (954527068) Elevated liver function tests (R79.89) Active confirmed Problem Gastroesophageal reflux disease without esophagitis (346651514) Gastroesophageal reflux disease without esophagitis (K21.9) Active confirmed Problem Fatty liver (418745254) Fatty liver (K76.0) Active confirmed Problem Hemorrhage of rectum and anus (544754577) Rectal bleed (K62.5) Active confirmed Vital Signs Temperature 96.9 degrees Fahrenheit 04/15/2025 Blood pressure diastolic 01 mm Hg 04/15/2025 Height 61.5 in 04/15/2025 Blood pressure systolic 001 mm Hg 04/15/2025 Weight 167.8 lbs 04/15/2025 BMI 31.19 kg/m2 04/15/2025 Encounters Encounter Location Date Provider Diagnosis [facility] [address] [place] [phone] 04/15/2025 Taz Peña Irritable bowel synd joseluis with diarrhea K58.0 ; Elevated liver function tests R79.89 ; Gastroesophageal reflux disease without esophagitis K21.9 ; Fatty liver K76.0 and Colon cancer screening Z12.11 [facility] [address] [place] [phone] 08/31/2024 Taz Peña [facility] [address] [place] [phone] 09/23/2024 Taz Peña [facility] [address] [place] [phone] 01/14/[address] [facility] [address] [place] [phone] 04/15/2025 Taz Peña Assessments Encounter Date Diagnosis (ICD Code) Assessment Notes Treatment Notes Treatment Clinical Notes Section Notes 04/15/2025 Irritable bowel syndrome with diarrhea (ICD-10 - K58.0) Switch to a Lactose-free milk and Ice Cream like [place] Milk, Soy MIlk, etc to see if [...] a liver ultrasound, along with the liver workup , including iron studies and autoimmune studies. At [...] a liver ultrasound, along with the liver workup , including iron studies and autoimmune studies. At [...] a liver ultrasound, along with the liver workup , including iron studies and autoimmune studies. At [...] a liver ultrasound, along with the liver workup , including iron studies and autoimmune studies. At [...] a liver ultrasound, along with the liver workup , including iron studies and autoimmune studies. At [...] Treatment Pending Test Test Name Order Date LIVER PROFILE 04/15/2025 IRON + IBC (FE) 04/15/2025 CBC w DIFF 04/15/2025 ALPHA-FETOPROTEIN,TUMOR MARKER 5 US abdomen comp w elastography 5 Future Test Test Name Order Date UPPER GI ENDOSCOPY 01/15/2013 COLONOSCOPY 01/15/2013 COLONOSCOPY 03/30/2019 Insurance Providers Payer Name Payer Address Payer Phone Subscriber Number Group Number Insured Name Patient Relationship to Insured Coverage Start Date Coverage End Date [facility] [address] [place] [address] [id number] SHERRY HUNTER Self - patient is the insured Medical (General) History Medical History History ICD Code Denies [place],DM,CVA,Lung disease,renal dise ase GERD- EGD in 04/2013- small HH, gastric p olyps, no esophagitis, no Denson's Hyperlipidemia Depression Hypothyroidism Colonoscopy in 04/2013- hyper plastic polyp, diverticulosis, internal hemorrhoids IBS- neg labs for celiac disease in 2016 Colonoscopy in 2018 was nega tive for inflammatory bowel disease. [...]
== END 2025-06-06 08:36 | disposition home or self-care (01) ==
LOC: HO.US 08:35
PROVIDERS: PCP Internal Medicine; Visit Provider Internal Medicine
DX: R79.89 Other specified abnormal findings of blood chemistry (principal); K76.0 Fatty (change of) liver, not elsewhere classified
CPT/HCPCS: 76700; 76981

== ENCOUNTER → 2025-06-06 08:50 | Outpatient (BNV) | payer OTHER, SELFPAY | PROVIDERS: PCP Internal Medicine; Visit Provider Radiology Diagnostic Radiology | DX: R16.2 Hepatomegaly with splenomegaly, not elsewhere classified (principal); K76.0 Fatty (change of) liver, not elsewhere classified | CPT/HCPCS: 76700 ==